=== PATIENT | male | born 1950 | race Caucasian/White ===

== ENCOUNTER 2017-09-29 04:44 | Inpatient (IN) | payer OTHER, MEDICARE ==
[~2017-09-29] VITALS: Ht 175.3 cm; Wt 60.8 kg
[2017-09-29] MEDS ORDERED: METOCLOPRAMIDE HCL 10 MG/2 ML VIAL IV ONE (05:00)
[2017-09-29] MEDS ORDERED: IV NORMAL SALINE 1000 ML BAG IV ONE (05:00)
[2017-09-29] MEDS ORDERED: FAMOTIDINE. 20 MG/2 ML VIAL IV ONE ×2 (05:00→05:25)
--- NOTE | 2017-09-29 05:21 | NUR ---
EKG DONE,MEDS ADMIN,1L 0.9 NS INFUSING. PT POSITIONED FOR COMFORT.
[2017-09-29] MEDS ORDERED: METOCLOPRAMIDE HCL 10 MG/2 ML VIAL ONE (05:25)
[2017-09-29] MEDS ORDERED: DILTIAZEM HCL 25 MG IV IV ONE ×2 (05:30→05:45)
[2017-09-29] MEDS ORDERED: DILTIAZEM HCL 50 MG IV ONE ×2 (05:44→06:17)
[2017-09-29 05:50] LABS: CARBON DIOXIDE 27 mmol/L (21-32); CHLORIDE 104 mmol/L (98-107); CREATININE 1.6 mg/dL (0.6-1.3); GLUCOSE 114 mg/dL (74-106); POTASSIUM 3.2 mmol/L (3.5-5.1); UREA NITROGEN, BLOOD 30 mg/dL (7-18)
[2017-09-29 05:53] LABS: ETHANOL < 3 MG/DL (0-0)
[2017-09-29] MEDS ORDERED: POTASSIUM CHLORIDE 40 MEQ in IV NS 1000 ML 1,000 ML IV STA (05:55)
[2017-09-29 05:56] LABS: ALANINE AMINOTRANSFERASE 66 U/L (16-63); ALKALINE PHOSPHATASE 110 U/L (50-136); ASPARTATE AMINOTRANSFERASE 53 U/L (15-37); BILIRUBIN,DIRECT 0.2 mg/dL (0.0-0.2); BILIRUBIN,TOTAL 0.7 mg/dL (0.2-1.0); TOTAL PROTEIN, SERUM 8.3 g/dL (6.4-8.2)
[2017-09-29 05:57] LABS: BASOPHILS % (AUTO) 0.3 % (0.0-2.0); EOSINOPHILS # (AUTO) 0.1 K/uL (0.0-0.7); EOSINOPHILS % (AUTO) 1.3 % (0.0-7.0); HEMATOCRIT 47.8 % (40-50); HEMOGLOBIN 15.7 G/DL (14.0-18.0); LYMPHOCYTES # (AUTO) 1.2 K/UL (0.8-4.8); LYMPHOCYTES % (AUTO) 14.8 % (20.5-51.5); MEAN CORPUSCULAR HEMOGLOBIN 29.6 UUG (27.0-31.0); MEAN CORPUSCULAR HGB CONC 33 g/dL (32.0-37.0); MEAN CORPUSCULAR VOLUME 90.2 FL (82.0-92.0); MONOCYTES # (AUTO) 0.8 K/UL (0.1-1.30); MONOCYTES % (AUTO) 9.5 % (0.0-11.0); NEUTROPHILS # (AUTO) 5.8 K/UL (1.8-8.9); NEUTROPHILS % (AUTO) 74.1 % (38.5-71.5); PLATELET COUNT (AUTO) 258 K/UL (150-450); WHITE BLOOD COUNT (AUTO) 7.9 K/UL (4.0-11.2)
[2017-09-29] MEDS ORDERED: POTASSIUM CHLORIDE 20 MEQ TAB.PRT.SR PO ONE (06:00)
[2017-09-29] MEDS ORDERED: DILTIAZEM HCL IV 125 MG in IV DEXTROSE 5% 100 ML IV PRN (06:00)
[2017-09-29 06:04] LABS: ACETAMINOPHEN < 2.0 ug/mL (10-30)
[2017-09-29] MEDS ORDERED: POTASSIUM CHLORIDE 20 MEQ TAB.PRT.SR ONE (06:17)
[2017-09-29] MEDS ORDERED: LORAZEPAM 2 MG/1 ML VIAL IV ONE (06:45)
--- NOTE | 2017-09-29 06:52 | NUR ---
ALL MD ORDERS COMPLETED, 10MG/HR DILTIAZEM DRIP INFUSING,PT CONVERTED AT THIS TIME, RATE AT 81. BELONGINGS LIST DONE, AWAITING FOR TECHNOLOGY ARCHITECT MD TO CALL BACK. PT RESTING.
[2017-09-29 06:55] LABS: *AMPHETAMINE, URINE POSITIVE (NEGATIVE); *BARBITURATE, URINE NEGATIVE (NEGATIVE); *CANNABINOID, URINE NEGATIVE (NEGATIVE); *COCCAINE, URINE NEGATIVE (NEGATIVE); *OPIATE, URINE POSITIVE (NEGATIVE); *PHENCYCLIDINE SCREEN,URINE NEGATIVE (NEGATIVE)
[2017-09-29] MEDS ORDERED: LORAZEPAM 2 MG/1 ML VIAL ONE (06:56)
--- NOTE | 2017-09-29 07:10 | NUR ---
SBAR REPORT TO AM SHIFT, PT SLEEPING ,MONITOR SHOWS.
--- NOTE | 2017-09-29 07:13 | NUR ---
MONITOR SHOWS NSR AT 79 BPM
--- NOTE | 2017-09-29 07:30 | NUR ---
Patient is resting comfortably in bed with eyes closed, NAD noted. Continue w/ Cardizem drip, remaines NSR.
--- NOTE | 2017-09-29 08:15 | NUR ---
Cardizem drip stopped per ER MD order. Pt remaines SR at the rate of 80's bpm.
--- NOTE | 2017-09-29 08:15 | NUR ---
Pt accepted by DR Maloney, unable to tx to Tele floor due to blood availibity, nursing warehouse supervisor 3rd shift aware.
--- NOTE | 2017-09-29 09:10 | NUR ---
BREAKFAST PROVIDED BUT PT REMAINES DROWSY ON/OFF. VSS.
--- NOTE | 2017-09-29 12:05 | NUR ---
Patient is resting comfortably in bed with eyes closed...
[2017-09-29 14:55] VITALS: BP 121/64
--- NOTE | 2017-09-29 15:30 | NUR ---
ADM TO UNIT PER MD ORDER. A/OX4 BUT SLEEPY AND DROWSY YET EASILY AROUSABLE; TELE SR WITH INVERTED T-WAVE AND PRIMARY MD AWARE. STARTED ON PO INTAKE AND WAS WELL [place]. WILL CONT TO MONITOR AT THIS TIME.
--- NOTE | 2017-09-29 18:56 | NUR ---
STATUS STABLE AT THIS TIME. DINNER WELL CATALINA AND NO S/S OF ANY GI DISTRESS NOTED.
[2017-09-29] MEDS ORDERED: ACETAMINOPHEN 325 MG TABLET PO PRN (19:15)
[2017-09-29] MEDS ORDERED: ONDANSETRON 4 MG/2 ML VIAL IV PRN (19:15)
[2017-09-29 20:00] VITALS: BP 131/55
[2017-09-29] MEDS ORDERED: IV 0.9% SODIUM CHLORID+ 20 KCL 1,000 ML ONE (22:41)
[2017-09-29] MEDS: POTASSIUM CHLORIDE 20 MEQ in IV NS 1000 ML 1,000 ML IV PRN (22:46)
[2017-09-30 01:02] VITALS: BP 125/63
[2017-09-30 04:00] VITALS: BP 130/64
[2017-09-30 07:09] LABS: BASOPHILS # (AUTO) 0.1 K/uL (0.0-8.0); BASOPHILS % (AUTO) 1.7 % (0.0-2.0); EOSINOPHILS # (AUTO) 0.1 K/uL (0.0-0.7); LYMPHOCYTES # (AUTO) 0.9 K/UL (0.8-4.8); LYMPHOCYTES % (AUTO) 19.2 % (20.5-51.5); MEAN CORPUSCULAR HEMOGLOBIN 30.2 UUG (27.0-31.0); MEAN CORPUSCULAR HGB CONC 33 g/dL (32.0-37.0); MEAN CORPUSCULAR VOLUME 91.6 FL (82.0-92.0); MONOCYTES # (AUTO) 0.6 K/UL (0.1-1.30); NEUTROPHILS % (AUTO) 63.1 % (38.5-71.5); PLATELET COUNT (AUTO) 202 K/UL (150-450)
[2017-09-30 07:33] LABS: BILIRUBIN,TOTAL 0.4 mg/dL (0.2-1.0); CREATININE 1.3 mg/dL (0.6-1.3); MAGNESIUM 1.8 mg/dL (1.8-2.4); PHOSPHOROUS 2.9 mg/dL (2.5-4.9); POTASSIUM 4.2 mmol/L (3.5-5.1); TOTAL PROTEIN, SERUM 6.2 g/dL (6.4-8.2)
[2017-09-30 07:37] LABS: WHITE BLOOD COUNT (AUTO) 4.7 K/UL (4.0-11.2)
[2017-09-30 07:38] LABS: HEMATOCRIT 39.4 % (40-50)
--- NOTE | 2017-09-30 07:58 | NUR ---
Awake, alert, oriented x 4. IVF infusing. Tele SR 60. He likes to eat, waiting for breakfast
[2017-09-30] MEDS: PANTOPRAZOLE SODIUM 40 MG TABLET.DR PO SCH (08:26)
[2017-09-30 09:31] LABS: THYROID STIMULATING HORMONE 0.419 mIU/mL (0.358-3.740)
[2017-09-30 11:35] VITALS: BP 127/52
[2017-09-30] MEDS: POTASSIUM CHLORIDE 20 MEQ in IV NS 1000 ML 1,000 ML IV PRN (13:22)
--- NOTE | 2017-09-30 14:00 | NUR ---
Asking about going out to smoke. Offered Nicotine patch but refused at this time. Redirected and offered snacks.
[2017-09-30 15:28] VITALS: BP 151/70
--- NOTE | 2017-09-30 18:48 | NUR ---
Seen by clinical scientist. DC tele.
[2017-09-30 20:18] VITALS: BP 109/43
[2017-10-01] MEDS: POTASSIUM CHLORIDE 20 MEQ in IV NS 1000 ML 1,000 ML IV PRN (02:49)
[2017-10-01 04:51] VITALS: BP 147/79
--- NOTE | 2017-10-01 06:05 | NUR ---
IN BED, NO C/O PAIN. SLEPT MOST SHIFT. IVF STILL INFUSING. SAFETY MEASURES RENDERED.
[2017-10-01] MEDS: PANTOPRAZOLE SODIUM 40 MG TABLET.DR PO SCH (06:13)
[2017-10-01 08:25] VITALS: BP 147/86
[2017-10-01] MEDS: ASPIRIN EC 81 MG TABLET.DR PO SCH (08:41)
[2017-10-01] MEDS: DILTIAZEM HCL CD 120 MG CAP.SR.24H PO SCH (08:42)
[2017-10-01 11:04] VITALS: BP 127/66
[2017-10-01 15:24] VITALS: BP 130/64
[2017-10-01] MEDS: HYDROCODONE/APAP 5-325MG TABLET PO PRN (20:02)
--- NOTE | 2017-10-01 20:30 | NUR ---
Received patient in room, no SOB denies chest discomfort. Complaining of headache & abdominal pain w/ 05/20 pain level. BP 136/64 HR 64. Blackwell 1 tab po adm. Ice pack applied on head. Will continue to monitor.
[2017-10-01 20:33] VITALS: BP 136/64
[2017-10-01] MEDS: NICOTINE 21 MG/24HR PATCH TD SCH (22:44)
[2017-10-01] MEDS ORDERED: NICOTINE 21 MG/24HR PATCH TD SCH (22:45)
[2017-10-01] MEDS: ZOLPIDEM 5 MG TABLET PO PRN (22:49)
[2017-10-01] MEDS ORDERED: NICOTINE 21 MG/24HR PATCH TD ONE (22:55)
[2017-10-02] MEDS: HYDROCODONE/APAP 5-325MG TABLET PO PRN ×3 (04:08→21:28)
[2017-10-02 04:12] VITALS: BP 144/58
[2017-10-02] MEDS: PANTOPRAZOLE SODIUM 40 MG TABLET.DR PO SCH (05:39)
--- NOTE | 2017-10-02 06:48 | NUR ---
Patient is now on Nicotine patch. Rested well today, kept comfortable. No acute distress.
--- NOTE | 2017-10-02 08:12 | NUR ---
Patient says he wants pain medication for left hip. By the time specification writer brought pain medication, he said his hip was feeling better and he did not need it.
[2017-10-02] MEDS: ASPIRIN EC 81 MG TABLET.DR PO SCH (09:18)
[2017-10-02] MEDS: NICOTINE 21 MG/24HR PATCH TD SCH (09:19)
[2017-10-02] MEDS: DILTIAZEM HCL CD 120 MG CAP.SR.24H PO SCH (09:19)
[2017-10-02 11:43] VITALS: BP 133/64
[2017-10-02 15:50] VITALS: BP 132/64
--- NOTE | 2017-10-02 19:32 | NUR ---
Handoff to night nurse.
--- NOTE | 2017-10-02 20:00 | NUR ---
Patient asleep, no signs of distress. Kept comfortable. Vital signs WNL.
[2017-10-02 20:10] VITALS: BP 136/64
[2017-10-02] MEDS: ZOLPIDEM 5 MG TABLET PO PRN (21:28)
[2017-10-03 04:15] VITALS: BP 150/73
[2017-10-03] MEDS: PANTOPRAZOLE SODIUM 40 MG TABLET.DR PO SCH (05:57)
--- NOTE | 2017-10-03 06:26 | NUR ---
Assisted w/ needs, no acute resp distress.
[2017-10-03 07:00] LABS: BASOPHILS # (AUTO) 0.2 K/uL (0.0-8.0); BASOPHILS % (AUTO) 3.9 % (0.0-2.0); EOSINOPHILS # (AUTO) 0.2 K/uL (0.0-0.7); EOSINOPHILS % (AUTO) 4.1 % (0.0-7.0); HEMATOCRIT 43.2 % (40-50); LYMPHOCYTES # (AUTO) 1.3 K/UL (0.8-4.8); LYMPHOCYTES % (AUTO) 23.2 % (20.5-51.5); MEAN CORPUSCULAR HEMOGLOBIN 29.6 UUG (27.0-31.0); MEAN CORPUSCULAR HGB CONC 32 g/dL (32.0-37.0); MEAN CORPUSCULAR VOLUME 91.3 FL (82.0-92.0); MONOCYTES # (AUTO) 0.7 K/UL (0.1-1.30); MONOCYTES % (AUTO) 12.1 % (0.0-11.0); NEUTROPHILS # (AUTO) 3.2 K/UL (1.8-8.9); NEUTROPHILS % (AUTO) 56.7 % (38.5-71.5); PLATELET COUNT (AUTO) 261 K/UL (150-450); RED BLOOD CELL COUNT(AUTO) 4.72 MIL/UL (4.7-6.1); WHITE BLOOD COUNT (AUTO) 5.6 K/UL (4.0-11.2)
[2017-10-03 07:48] LABS: BILIRUBIN,TOTAL 0.4 mg/dL (0.2-1.0); PHOSPHOROUS 2.6 mg/dL (2.5-4.9); POTASSIUM 4.3 mmol/L (3.5-5.1); TOTAL PROTEIN, SERUM 6.9 g/dL (6.4-8.2)
[2017-10-03] MEDS: NICOTINE 21 MG/24HR PATCH TD SCH (08:31)
[2017-10-03] MEDS: ASPIRIN EC 81 MG TABLET.DR PO SCH (08:32)
[2017-10-03] MEDS: DILTIAZEM HCL CD 120 MG CAP.SR.24H PO SCH (08:32)
[2017-10-03] MEDS: HYDROCODONE/APAP 5-325MG TABLET PO PRN (08:44)
--- NOTE | 2017-10-03 08:45 | NUR ---
PATIENT REQUESTING FOR PAIN MEDICATION STATED THAT HIS BACK IS HURTING HIM SO MEDICATED ORDERED AND WILL OBSERVE
[2017-10-03] MEDS ORDERED: FLUTICASONE/VILANTEROL 1 EACH BLST.W.DEV INH SCH (09:00)
--- NOTE | 2017-10-03 11:47 | NUR ---
PATIENT SEEN STANDING IN THE HALLWAY WITH HIS RYAN PANTS ON HOLDING HIS SHIRT STATED WANTS TO GO TO SMOKE REMINDED HIM THAT HE HAS A NICOTINE PATCH ON AND IS NOT SUPPOSED TO SMOKE AND HE STATED OKAY WILL CONTINUE TO OBSERVE AND REDIRECT PATIENT
[2017-10-03 12:02] VITALS: BP 127/60
--- NOTE | 2017-10-03 13:16 | NUR ---
DR DIAS HERE AND STATED THAT THE PLAN IS TO DISCHARGE PATIENT HOME TODAY PATIENT AWARE AND STATED THAT HE WAS READY HE INFORMED ME THAT HE IS HOMELESS AND HAS BEEN FOR YEARS STATED DOES NOT WANT TO GET A PLACE OF HIS OWN DOES NOT WANT TO GO TO THE [facility] JUST LIKES TO BE OUT THERE DOING HIS THING AWAITING FOR ORDERS
[2017-10-03] MEDS ORDERED: HYDR-3326 PO (13:51)
[2017-10-03] MEDS ORDERED: ASPI81TA31 PO (13:51)
--- NOTE | 2017-10-03 15:00 | NUR ---
DR DIAS HERE AND SEEN PATIENT AND WROTE PRESCRIPTIONS FOR DISCHARGE MEDICATIONS PATIENT WAS OFFERED THE [facility] AGAIN AND HE STATED NO WANTS TO GO BACK TO SAME WAY OF LIFE
--- NOTE | 2017-10-03 15:40 | NUR ---
PATIENT DISCHARGED ESCORTED TO THE FRONT OF THE HOSPITAL STATED THAT HE WILL TAKE THE BUS [place] AND WILL DROP AT HIS FRIENDS HOUSE AND THEN WILL GO TO THE PARK WHERE HE RESIDES DISCHARGE INSTRUCTIONS AND PRESCRIPTIONS GIVEN TO THE PATIENT AND HE WAS INSTRUCTED TO CALL HIS PRIMARY DOCTOR FOR A FOLLOW UP APPOINTMENT WITHIN THE NEXT ONE TO TWO WEEKS AND HE EXPRESSED UNDERSTANDING PATIENT ASKED ME WHERE HIS FLASH LIGHT WAS BUT ON THE INVENTORY THE FLASH LIGHT WAS NOT RECORDED I WENT TO THE SECURITY AND THE ED BUT WAS UNABLE TO LOCATE THE FLASH LIGHT SO PATIENT STATED THAT THE PARAMEDICS TOOK THE FLASH LIGHT FROM HIM WHEN THERE WERE GIVING HIM A RIDE HERE AND THAT HE WILL GO TO THE FIRE STATION CLOSE TO WHERE HE WAS PICKED UP TO SEE IF THEY HAVE A RECORD OF THE FLASH LIGHT
[2017-10-03 16:04] VITALS: BP 130/63
== END 2017-10-03 16:06 | disposition home or self-care (01) | DRG 201 ==
LOC: ER 04:45 → TELE 14:05 → MED 09-30 19:00
PROVIDERS: ADMIT Internal Medicine; ATTEND Internal Medicine
DX: I48.0 Paroxysmal atrial fibrillation (principal); N17.0 Acute kidney failure with tubular necrosis; E43 Unspecified severe protein-calorie malnutrition; G92 Toxic encephalopathy; I78.0 Hereditary hemorrhagic telangiectasia; J44.9 Chronic obstructive pulmonary disease, unspecified; I11.9 Hypertensive heart disease without heart failure; E86.0 Dehydration; F17.210 Nicotine dependence, cigarettes, uncomplicated; Z59.0 Homelessness; Z87.11 Personal history of peptic ulcer disease; F10.11 Alcohol abuse, in remission; Y90.0 Blood alcohol level of less than 20 mg/100 ml; Z68.1 Body mass index [BMI] 19.9 or less, adult; K52.9 Noninfective gastroenteritis and colitis, unspecified; F15.10 Other stimulant abuse, uncomplicated; K76.9 Liver disease, unspecified; E87.6 Hypokalemia; T40.2X1A Poisoning by other opioids, accidental (unintentional), initial encounter; T50.901A Poisoning by unspecified drugs, medicaments and biological substances, accidental (unintentional), initial encounter; Y92.89 Other specified places as the place of occurrence of the external cause
CPT/HCPCS: 36415; 70030-TC; 71010; 80307; 83690; 83735; 84100; 84443; 85025; 85730; 93005; 93307; A4663; G0480; G0480-TC; J2060; J2765; J3480; J3490; J7030

== ENCOUNTER 2018-01-05 20:54 | Emergency (ER) | payer MEDICARE, OTHER ==
[~2018-01-05 20:54] MED LIST: ASPI81TA31 PO; HYDR-3326 PO
--- NOTE | 2018-01-05 22:08 | NUR ---
CALLED FOR PT NO ANSWER .
--- NOTE | 2018-01-05 22:30 | NUR ---
CALLED FOR PT NO ANSWER LWBT
--- NOTE | 2018-01-05 23:10 | NUR ---
CALLED FOR PT NO ANSWER
== END 2018-01-05 23:12 | disposition left against medical advice (07) ==
LOC: ER 20:54
DX: Z53.21 Procedure and treatment not carried out due to patient leaving prior to being seen by health care provider (principal)

== ENCOUNTER 2019-01-24 19:43 | Inpatient (IN) | payer MEDICARE, OTHER ==
[~2019-01-24] VITALS: Ht 172.7 cm; Wt 64.4 kg
--- NOTE | 2019-01-24 20:10 | NUR ---
Patient ambulated with stable gait. Patient AAOx4. Patient speaks in complete sentences, speaks clearly. Patient came in with c/o L. EAR/HEAD pain. Respirations even and unlabored, no sob, no cough. No cardiovascular distress noted, all pulses palpable. No GI/ distress. Patient in bed at lowest position, side rails upx2, call light within reach. Fall precautions implemented per protocol.
[2019-01-24] MEDS ORDERED: CEFTRIAXONE 1 G in IV DEXTROSE 5% 50 ML IV ONE (20:15)
[2019-01-24] MEDS ORDERED: VANCOMYCIN IV 1,000 MG in IV DEXTROSE 5% 250 ML IV ONE (20:15)
[2019-01-24] MEDS ORDERED: CEFTRIAXONE 1 G VIAL ONE (20:16)
--- NOTE | 2019-01-24 20:35 | NUR ---
Pt went down to radiology dept for CT Scan.
[2019-01-24 20:41] LABS: BASOPHILS % (AUTO) 0.3 % (0.0-2.0); HEMATOCRIT 43.7 % (36.7-47.1); HEMOGLOBIN 14.5 g/dL (12.5-16.3); LYMPHOCYTES # (AUTO) 0.4 K/uL (20.0-40.0); LYMPHOCYTES % (AUTO) 3.3 % (20.5-51.5); MEAN CORPUSCULAR HEMOGLOBIN 29.7 uug (23.8-33.4); MEAN CORPUSCULAR HGB CONC 33 g/dL (32.5-36.3); MEAN CORPUSCULAR VOLUME 89.8 fL (73.0-96.2); MONOCYTES # (AUTO) 1.1 K/uL (2.0-10.0); MONOCYTES % (AUTO) 8.2 % (0.0-11.0); NEUTROPHILS # (AUTO) 11.8 K/uL (1.8-8.9); NEUTROPHILS % (AUTO) 88.2 % (38.5-71.5); PLATELET COUNT (AUTO) 238 K/uL (152-348); RED BLOOD CELL COUNT(AUTO) 4.86 MIL/uL (4.06-5.63); WHITE BLOOD COUNT (AUTO) 13.4 K/uL (3.6-10.2)
[2019-01-24 20:51] LABS: CREATININE 1.7 mg/dL (0.6-1.3); POTASSIUM 4.4 mmol/L (3.5-5.1)
[2019-01-24 20:57] LABS: BILIRUBIN,DIRECT 0.3 mg/dL (0.0-0.2); BILIRUBIN,TOTAL 0.9 mg/dL (0.2-1.0)
[2019-01-24] MEDS ORDERED: VANCOMYCIN IV 200 ML ONE (21:33)
[2019-01-24] MEDS ORDERED: IV NORMAL SALINE 1000 ML BAG IV ONE (21:45)
--- NOTE | 2019-01-24 21:46 | NUR ---
Panel call request through [employer] initiated. Awaiting phone call back.
--- NOTE | 2019-01-24 23:30 | NUR ---
Patient transfered to [facility] condition.
--- NOTE | 2019-01-24 23:35 | NUR ---
Received patient from emergency department via [facility] accompanied by PATRIC Deleon in stable condition. Patient is alert, oriented and ambulatory. Patient walked from [facility] to hospital bed. Noted he is in room air, tolerated. He has an IV access on the right forearm, 20g to saline lock, patent and intact. Patient settled in room, changed to hospital gown and helped patient clean himself. Oriented patient to unit and use of call light. Patient has no complaints at the moment. Bed in low position, locked, side rails up x 2, call light within reach. Noise and lights subdued. Will continue to monitor.
[2019-01-25] MEDS ORDERED: LORAZEPAM 2 MG/1 ML VIAL IV PRN
[2019-01-25] MEDS ORDERED: ACETAMINOPHEN 325 MG TABLET PO PRN
[2019-01-25] MEDS ORDERED: PIPERACILLIN/TAZOBACTAM/D5W 0 ML IV ONE (00:42)
[2019-01-25] MEDS ORDERED: PIPERACILLIN/TAZOBACTAM/D5W 50 ML ONE (01:06)
[2019-01-25 02:21] VITALS: BP 150/62
--- NOTE | 2019-01-25 04:40 | NUR ---
Patient complaining of shortness of breath. Upon assessment, patient has clear breath sounds throughout the lungs and oxygen saturation at 96-97%. Noted patient has nonproductive cough. Placed patient on semi-fowlers position and started oxygen support at 2lpm via nasal cannula. Will reassess.
[2019-01-25 05:58] LABS: BASOPHILS # (AUTO) 0.1 K/uL (0.0-8.0); BASOPHILS % (AUTO) 0.5 % (0.0-2.0); EOSINOPHILS # (AUTO) 0.1 K/uL (0.0-0.7); EOSINOPHILS % (AUTO) 0.6 % (0.0-7.0); HEMATOCRIT 38.7 % (36.7-47.1); HEMOGLOBIN 12.9 g/dL (12.5-16.3); LYMPHOCYTES # (AUTO) 1.1 K/uL (20.0-40.0); LYMPHOCYTES % (AUTO) 11.7 % (20.5-51.5); MEAN CORPUSCULAR HEMOGLOBIN 30.1 uug (23.8-33.4); MEAN CORPUSCULAR HGB CONC 33 g/dL (32.5-36.3); MEAN CORPUSCULAR VOLUME 90.3 fL (73.0-96.2); MONOCYTES # (AUTO) 1.2 K/uL (2.0-10.0); MONOCYTES % (AUTO) 12.2 % (0.0-11.0); NEUTROPHILS # (AUTO) 7.3 K/uL (1.8-8.9); PLATELET COUNT (AUTO) 193 K/uL (152-348); RED BLOOD CELL COUNT(AUTO) 4.28 MIL/uL (4.06-5.63); WHITE BLOOD COUNT (AUTO) 9.7 K/uL (3.6-10.2)
[2019-01-25] MEDS ORDERED: PIPERACILLIN/TAZOBACTAM/D5W 2.25 G in PREMIXED 1 EACH IV SCH (06:00)
[2019-01-25 06:02] VITALS: BP 113/55
[2019-01-25] MEDS: PANTOPRAZOLE SODIUM 40 MG TABLET.DR PO SCH (06:04)
[2019-01-25 06:16] LABS: BILIRUBIN,TOTAL 0.9 mg/dL (0.2-1.0); CREATININE 1.3 mg/dL (0.6-1.3); MAGNESIUM 1.8 mg/dL (1.8-2.4); PHOSPHOROUS 3.3 mg/dL (2.5-4.9); POTASSIUM 4.6 mmol/L (3.5-5.1)
--- NOTE | 2019-01-25 06:34 | NUR ---
Patient slept intermittently throughout the night. Patient breathing better and verbalized that he feels better after oxygen support started, oxygen saturation 96-98% Noted still with swelling on left side of the face and left ear, noted drainage from left ear. With pain on left ear but patient declined any pain medications. Attended all needs. Ensured safety and comfort.
--- NOTE | 2019-01-25 07:30 | NUR ---
RECEIVED PATIENT ASLEEP IN BED BUT IS EASILY AROUSABLE ON ROUNDS HE IS ALERT AND ORIENTED DENIES PAIN OR DISCOMFORTS AT THIS TIME.ON O2 FOR C/O SHORTNESS OF BREATH NOTED CALL LIGHTS AND PERSONAL BELONGINGS ARE WITHIN EASY REACH MADE COMFORTABLE AND WILL CONTINUE TO OBSERVE PATIENT.
--- NOTE | 2019-01-25 10:08 | NUR ---
Clinical Pharmacy Note: Vancomycin Dosing per Pharmacy Subjective: Vancomycin IV to start on this 68 yo male patient for SI "Acute infection of left pinna" Objective: BUN 23/Scr 1.3 (decreasing) WBC 9.7 Temperature 97.7 Vanco random: 9.5 (on 01/24 at 2200) ht 172.7 cm wt 64.4 kg Assessment/Plan: Patient received vanco 1gm IVPB x1 in ED on 01/24 at 2200. Will start vancomycin 1000mg IVPB Q20hr for a predicted vancomycin steady state trough level of 17 mcg/ml. 1st dose today at 1100. Will draw a vancomycin trough level prior to the 4th dose of vancomycin (not ordered yet). Will monitor renal function and adjust vancomycin dose, if needed, should renal function change significantly. Will follow daily.
[2019-01-25] MEDS: VANCOMYCIN IV 1 G in PREMIXED 0 EACH IV SCH (10:21)
[2019-01-25 11:06] VITALS: BP 136/55
--- NOTE | 2019-01-25 13:14 | NUR ---
PATIENTS IV SITE INFILTERATED AND REMOVED ASSISTED WITH SHOWERING AND ATTEMPTED TO REINSERT SOON I APPLIED THE TOURNIQUET PATIENT STATED NOT NOW NOT READY ASKED HIM WHEN HE WANTED ME TO COME BACK TO REINSERT STATED DOES NOT KNOW SO ANABEL MOSS NOTIFIED HIS NEXT DOSE OF ZOSYN IS DUE IN A FEW MINUTES.
--- NOTE | 2019-01-25 14:19 | NUR ---
ANABEL MOSS HERE IN THE ROOM SEEN PATIENT AND CONVINCED HIM TO HAVE A MID LINE PLACED AND PATIENT AGREED HARNESS CUTTER AWARE MID LINE RN HERE AND IS PLACING THE LINE NOW.
[2019-01-25] MEDS: PIPERACILLIN/TAZOBACTAM/D5W 3.375 G in PREMIXED 1 EACH IV SCH ×2 (14:26→21:04)
[2019-01-25 15:07] VITALS: BP 103/54
--- NOTE | 2019-01-25 19:45 | NUR ---
PATIENT AWAKE ALERT ORIENTED, NO SOB NO CHEST PAIN NOTED. LEFT SIDE FACE/EAR STILL SWOLLEN. PATIENT CONTINUE ON ABX FOR L EAR INFECTION. PATIENT HAS NO COMPLAIN OF PAIN AT THIS TIME. PATIENT HAS SLIGHT ELEVATED TEMP 100. WILL GIVE TYLENOL AND COOLING MEASURE. CONT TO MONITOR.
[2019-01-25 21:44] VITALS: BP 97/70
[2019-01-25] MEDS ORDERED: PIPERACILLIN/TAZOBACTAM/D5W 3.375 G in PREMIXED 1 EACH IV SCH (22:00)
[2019-01-26] MEDS: PIPERACILLIN/TAZOBACTAM/D5W 3.375 G in PREMIXED 1 EACH IV SCH ×3 (05:11→21:04)
[2019-01-26 05:18] VITALS: BP 143/53
[2019-01-26] MEDS: HYDROCODONE/APAP 5-325MG TABLET PO PRN ×2 (05:23→19:39)
[2019-01-26] MEDS: VANCOMYCIN IV 1 G in PREMIXED 0 EACH IV SCH (06:11)
[2019-01-26] MEDS: PANTOPRAZOLE SODIUM 40 MG TABLET.DR PO SCH (06:12)
--- NOTE | 2019-01-26 06:44 | NUR ---
PATIENT AWAKE NO SOB NO CHEST PAIN, L UPPER ARM MIDLINE INTACT PATENT, COMPLAIN OF L EAR PAIN GIVEN MEDICATION WITH SOME HELP. CONTINENT OF BLADDER. CONT TO MONITOR.
--- NOTE | 2019-01-26 07:15 | NUR ---
RECEIVED AWAKE ALERT AND ORIENTED DENIES PAIN OR DISCOMFORTS ATB ORDERED CURRENTLY INFUSING WITH NO ADVERSE OR ALLERGIC REACTIONS AT THIS TIME MID LINE LEFT UPPER ARM REMAINS INTACT WITH NO S/S OF INFILTERATION ON SITE.MOT IN DISTRESS AT THIS TIME.
[2019-01-26] MEDS: ASPIRIN 81 MG TAB.CHEW PO SCH (08:45)
[2019-01-26 11:09] VITALS: BP 123/66
--- NOTE | 2019-01-26 11:44 | NUR ---
Clinical Pharmacy Note: Vancomycin Dosing per Pharmacy Subjective: Vancomycin IV to start on this 68 yo male patient for SI "Acute infection of left pinna" Objective: BUN 23/Scr 1.3 (01/25-decreasing) WBC 9.7 (01/25) Temperature 98.2 Vanco random: 9.5 (on 01/24 at 2200) ht 172.7 cm wt 64.4 kg Assessment/Plan: Will continue same dose of vancomycin 1000mg IVPB Q20hr for today. 3rd dose tomorrow at 0300. Will draw a vancomycin trough level prior to the 4th dose of vancomycin (not ordered yet). Will monitor renal function and adjust vancomycin dose, if needed, should renal function change significantly. Will follow daily.
--- NOTE | 2019-01-26 13:30 | NUR ---
REMAIN ON ANTBIOTICS ORDERED WITH NO ADVERSE OR ALLERGIC REACTIONS AT THIS TIME.NO C/O PAIN OR DISCOMFORTS AT THIS TIME
--- NOTE | 2019-01-26 15:15 | NUR ---
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
[2019-01-26 15:30] VITALS: BP 132/74
--- NOTE | 2019-01-26 18:07 | NUR ---
REMAIN ON CONTACT ISOLATION AND PRECAUTION ORDERED WITH PPES AND GOOD HAND WASHING NO ADVERSE OR ALLERGIC REACTIONS NOTED FROM ATB ORDERED NOT IN DISTRESS AT THIS TIME
--- NOTE | 2019-01-26 19:45 | NUR ---
RECEIVED PATIENT AWAKE IN ROOM, HOLDING LEFT EAR. BLEEDING NOTED. PATENT DENIES PICKING AT EAR. CLEANED WITH NS AND APPLIED STERILE DRESSING OVER, WHICH PATIENT REFUSES TO KEEP ON. WILL CONTINUE TO CLOSELY MONITOR. MID-LINE NOTED TO LEFT UPPER ARM, INTACT AND PATENT. PATIENT C/O PAIN IN LEFT EAR BUT DENIES NEED FOR ANY PAIN MEDICATION. VSS. NO RESP. DISTRESS NOTED. PATIENT IS ON ISOLATION FOR MRSA NARES. BED ALARM ON. ALL NEEDS ATTENDED. WILL CONTINUE TO MONITOR AND ASSESS.
[2019-01-26 19:54] VITALS: BP 152/61
--- NOTE | 2019-01-26 20:00 | NUR ---
PATIENT AWAKE IN BED. ANABEL-STEPHON CALLED TO NOTIFY HIM OF PATIENTS EAR. NO BLEEDING IS NOTED AT THIS TIME. WILL CONTINUE TO MONITOR AND ASSESS.
[2019-01-26] MEDS: CULTURELLE CAPSULE PO SCH ×2 (20:47→21:00)
[2019-01-26] MEDS: MUPIROCIN 2% OINT 22 GM TUBE NS SCH ×2 (20:47→21:00)
--- NOTE | 2019-01-26 20:50 | NUR ---
PATIENT REFUSED BACTROBAN STATING HE DOES NOT HAVE ANY INFECTION. EDUCATED PATIENT ON THE IMPORTANCE OF MEDIATIONS BUT PATIENT STILL REFUSED. WILL CONTINUE TO MONITOR.
--- NOTE | 2019-01-26 21:05 | NUR ---
PATIENT FEELING ANXIOUS. PATIENT GIVEN ATIVAN 1MG IV PER RN. BED ALARM ON. ALL NEEDS ATTENDED. WILL CONTINUE TO MONITOR AND ASSESS.
[2019-01-27] MEDS: VANCOMYCIN IV 1 G in PREMIXED 0 EACH IV SCH (02:32)
[2019-01-27] MEDS: PIPERACILLIN/TAZOBACTAM/D5W 3.375 G in PREMIXED 1 EACH IV SCH ×2 (05:17→13:07)
[2019-01-27 05:37] VITALS: BP 135/83
[2019-01-27] MEDS: HYDROCODONE/APAP 5-325MG TABLET PO PRN (05:46)
--- NOTE | 2019-01-27 05:46 | NUR ---
PATIENT GIVEN NORCO FOR PAIN.
--- NOTE | 2019-01-27 06:15 | NUR ---
PATIENT RESTING IN BED. SLEPT AT INTERVALS. NO BLEEDING OR DRAINAGE NOTED FROM LEFT EAR. CALL LIGHT IN REACH. ALL NEEDS ATTENDED. WILL CONTINUE TO MONITOR.
[2019-01-27] MEDS: PANTOPRAZOLE SODIUM 40 MG TABLET.DR PO SCH (06:37)
--- NOTE | 2019-01-27 07:15 | NUR ---
RECEIVED PATIENT IN BED ASLEEP PER REPORT PATIENT RECEIVED NORCO EARLIER NOT TOO LONG AGO FOR PAIN NO BLEEDING FROM HIS EAR AT THIS TIME NO S/S OF SHORTNESS OF BREATH CALL LIGHTS AND PERSONAL BELONGINGS ARE PLACED WITHIN EASY REACH MADE COMFORTABLE WILL CONTINUE TO OBSERVE AND PROVIDE SAFE AND THERAPEUTIC ENVIRONMENT AT ALL TIMES.
[2019-01-27] MEDS: CULTURELLE CAPSULE PO SCH (08:33)
[2019-01-27] MEDS: ASPIRIN 81 MG TAB.CHEW PO SCH (08:33)
[2019-01-27] MEDS: MUPIROCIN 2% OINT 22 GM TUBE NS SCH (08:34)
--- NOTE | 2019-01-27 10:49 | NUR ---
Clinical Pharmacy Note: Vancomycin Dosing per Pharmacy Subjective: Vancomycin IV to continue on this 68 yo male patient for SI "Acute infection of left pinna" Objective: BUN 23/Scr 1.3 (01/25-decreasing) WBC 9.7 (01/25) Temperature 98.2 Vanco random: 9.5 (on 01/24 at 2200) ht 172.7 cm wt 64.4 kg Assessment/Plan: Will continue same dose of vancomycin 1000mg IVPB Q20hr for today. 3rd dose given today at 0300. Will draw a vancomycin trough level prior to the 4th dose of vancomycin (ordered for 01/27 at 2230-RN has been informed to hold 2300 dose if vanco trough level is above 20 mcg/ml). Pharmacist shall review the level in am & adjust the dose if needed. Will follow daily.
[2019-01-27] MEDS ORDERED: SULF1TAB48 PO (11:31)
[2019-01-27 11:38] VITALS: BP 138/72
--- NOTE | 2019-01-27 11:53 | NUR ---
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
--- NOTE | 2019-01-27 13:38 | NUR ---
WOUND CARE CONSULT: PT REFUSED SKIN ASSESSMENT. CURRENT DARIELA SCORE IS 21.
--- NOTE | 2019-01-27 14:00 | NUR ---
PER THE WASTE WATER OPERATOR PARAFFIN PLANT SWEATER OPERATOR PATIENT IS REFUSING SENIOR LIVING ALL THE INFORMATION FOR SENIOR LIVING WAS PROVIDED PATIENT DECLINED AND PREFERS TO BE HOMELESS.
--- NOTE | 2019-01-27 14:15 | NUR ---
PATIENT DISCHARGED WITH DISCHARGE INSTRUCTIONS AND PRESCRIPTIONS AND PATIENT STATED THAT HE IS HOMELESS ASKED HIM IF WANTED A BUS [place] STATED DONT WORRY ABOUT IT I WILL TAKE CARE OF MYSELF PATIENT ESCORTED WITH ALL HIS PERSONAL BELONGINGS TO THE FRONT LOBBY IN SATISFACTORY CONDITION NO BLEEDING FROM HIS EAR AT THIS TIME
== END 2019-01-27 14:20 | disposition home or self-care (01) | DRG 115 ==
LOC: ER 19:45 → MEDSURG3 23:09
PROVIDERS: ADMIT Internal Medicine; ATTEND Hospitalist
PROC: 05HY33Z Insertion of Infusion Device into Upper Vein, Percutaneous Approach (ICD-10-PCS; principal; 2019-01-25)
DX: H60.392 Other infective otitis externa, left ear (principal); N17.0 Acute kidney failure with tubular necrosis; I78.0 Hereditary hemorrhagic telangiectasia; E86.0 Dehydration; I13.10 Hypertensive heart and chronic kidney disease without heart failure, with stage 1 through stage 4 chronic kidney disease, or unspecified chronic kidney disease; Z22.322 Carrier or suspected carrier of Methicillin resistant Staphylococcus aureus; Z59.0 Homelessness; Z87.11 Personal history of peptic ulcer disease; Z79.82 Long term (current) use of aspirin; T14.90XS Injury, unspecified, sequela; Y04.2XXS Assault by strike against or bumped into by another person, sequela; F17.210 Nicotine dependence, cigarettes, uncomplicated; N18.9 Chronic kidney disease, unspecified; Z98.890 Other specified postprocedural states; Z96.7 Presence of other bone and tendon implants; F10.21 Alcohol dependence, in remission; F15.10 Other stimulant abuse, uncomplicated; J98.11 Atelectasis; Y90.9 Presence of alcohol in blood, level not specified; S01.312A Laceration without foreign body of left ear, initial encounter; X58.XXXA Exposure to other specified factors, initial encounter; Y92.89 Other specified places as the place of occurrence of the external cause
CPT/HCPCS: 36415; 36569; 70450; 70486; 71045; 72125; 83735; 84100; 85025; 85730; A4663; G0378; J0696; J2060; J2543; J3370; J7030; J7050; J7060

== ENCOUNTER 2019-10-14 21:14 | Emergency (ER) | payer MEDICARE, OTHER ==
[~2019-10-14] VITALS: Ht 175.3 cm; Wt 63.5 kg
[~2019-10-14 21:14] MED LIST changes: +SULF1TAB48 PO
--- NOTE | 2019-10-14 22:28 | NUR ---
Pt provided urine sample, sent to lab.
--- NOTE | 2019-10-14 22:33 | NUR ---
Dr. Flores at bedside for MSE.
[2019-10-14 22:58] LABS: BASOPHILS # (AUTO) 0.1 K/uL (0.0-8.0); BASOPHILS % (AUTO) 1.2 % (0.0-2.0); EOSINOPHILS # (AUTO) 0.1 K/uL (0.0-0.7); EOSINOPHILS % (AUTO) 1.5 % (0.0-7.0); HEMATOCRIT 40.9 % (36.7-47.1); HEMOGLOBIN 13.5 g/dL (12.5-16.3); LYMPHOCYTES # (AUTO) 1.4 K/uL (20.0-40.0); LYMPHOCYTES % (AUTO) 18.5 % (20.5-51.5); MEAN CORPUSCULAR HGB CONC 33 g/dL (32.5-36.3); MEAN CORPUSCULAR VOLUME 93.8 fL (73.0-96.2); MONOCYTES # (AUTO) 0.7 K/uL (2.0-10.0); MONOCYTES % (AUTO) 8.8 % (0.0-11.0); NEUTROPHILS # (AUTO) 5.2 K/uL (1.8-8.9); PLATELET COUNT (AUTO) 198 K/uL (152-348); RED BLOOD CELL COUNT(AUTO) 4.36 MIL/uL (4.06-5.63); WHITE BLOOD COUNT (AUTO) 7.4 K/uL (3.6-10.2)
[2019-10-14 23:06] LABS: *BLOOD, URINE 3+ (NEGATIVE); *CLARITY,URINE CLOUDY (CLEAR); *COLOR,URINE RED (YELLOW); *KETONES,URINE TRACE (NEGATIVE); LEUKOCYTE ESTERASE ,URINE 3+ (NEGATIVE); NITRITE, URINE POSITIVE (NEGATIVE); UGLUCOSE NEGATIVE (NEGATIVE)
[2019-10-14 23:09] LABS: CREATININE 1.2 mg/dL (0.6-1.3); POTASSIUM 4.5 mmol/L (3.5-5.1)
[2019-10-14 23:13] LABS: *BILIRUBIN,URIN 2+ (NEGATIVE)
[2019-10-14 23:19] LABS: BILIRUBIN,DIRECT 0.2 mg/dL (0.0-0.2); BILIRUBIN,TOTAL 0.5 mg/dL (0.2-1.0); TOTAL PROTEIN, SERUM 7.7 g/dL (6.4-8.2)
[2019-10-14 23:26] LABS: RBC,URINE TNTC /HPF (0-3)
[2019-10-14 23:27] LABS: BACTERIA,URINE MANY /HPF (NONE SEEN); SQUAMOUS EPITHELIAL CELL,UR FEW /HPF (NONE SEEN)
[2019-10-14] MEDS ORDERED: MORPHINE SULFATE 2 MG/1 ML DISP.SYRIN ONE (23:44)
[2019-10-14] MEDS ORDERED: MORPHINE SULFATE 2 MG/1 ML DISP.SYRIN IM ONE (23:45)
--- NOTE | 2019-10-14 23:51 | NUR ---
Pt out of ER for CT.
--- NOTE | 2019-10-15 00:10 | NUR ---
Pt back to ER from CT.
[2019-10-15] MEDS ORDERED: NITROFURANTOIN/NITROFURAN MAC 100 MG CAPSULE ONE (01:10)
[2019-10-15] MEDS ORDERED: NITROFURANTOIN/NITROFURAN MAC 100 MG CAPSULE PO ONE (01:15)
--- NOTE | 2019-10-15 01:18 | NUR ---
Patient given written and verbal discharge instructions. Patient verbalizes understanding of instructions. Patient is ambulatory with steady gait. Refuses offer of fdc placement. Patient given list of available shelters in surrounding area. Pt provided food per request, refused all other services at this time. VSS, no acute signs of distress, all belongings taken.
[2019-10-15 01:21] VITALS: BP 118/80
== END 2019-10-15 01:21 | disposition home or self-care (01) ==
LOC: ER 21:16
DX: N39.0 Urinary tract infection, site not specified (principal); I10 Essential (primary) hypertension; F17.210 Nicotine dependence, cigarettes, uncomplicated; Z88.8 Allergy status to other drugs, medicaments and biological substances; Z91.018 Allergy to other foods; Z59.0 Homelessness; Z79.82 Long term (current) use of aspirin; Z79.899 Other long term (current) drug therapy
CPT/HCPCS: 36415; 74176; 80048; 80076; 81000; 81001; 82550; 83605; 85025; 87040 ×2; 87086; 96372; 99284; J2270; A4663

== ENCOUNTER 2021-06-22 03:09 | Emergency (ER) | payer MEDICARE, OTHER ==
[~2021-06-22] VITALS: Ht 172.7 cm; Wt 63.5 kg
--- NOTE | 2021-06-22 03:45 | NUR ---
Patient presents to ER with c/o of shortness of breath x 2 months and states it is "worse with mask" pt also c/o of chest pain, that radiates to the Lt arm x 2 months. No acute distress. Awaiting MD orlando.
[2021-06-22] MEDS ORDERED: IPRATROPIUM BROMIDE 0.5 MG/2.5 ML NEBU NEB ONE (04:00)
[2021-06-22] MEDS ORDERED: ALBUTEROL SULFATE 2.5 MG/3 ML NEBU NEB ONE (04:00)
--- NOTE | 2021-06-22 04:00 | NUR ---
Attempted to insert IV, unable to obtain IV d/t pt's skin being tough. Metal Leaf Layer aware and was going to draw blood. Pt refused to be stuck again for blood draw. Dr. Rahman made aware.
[2021-06-22] MEDS ORDERED: IPRATROPIUM BROMIDE 0.5 MG/2.5 ML NEBU ONE (04:13)
[2021-06-22] MEDS ORDERED: ALBUTEROL SULFATE 2.5 MG/ 0.5 ML NEBU ONE (04:13)
--- NOTE | 2021-06-22 04:20 | NUR ---
RT stated that pt reported cp to her. Dr. Rahman made aware. Spoke with patient that labs need to be drawn to find out what his troponin is. Pt refused lab draws again stated "I don't want to go through that again, I am just here for my breathing." Dr. Rahman made aware.
[2021-06-22] MEDS ORDERED: PRED20TA PO (05:16)
[2021-06-22] MEDS ORDERED: ALBU8.5H8 INH (05:16)
--- NOTE | 2021-06-22 05:20 | NUR ---
Per Dr. Rahman, pt stable for discharge. DC instructions and rx given and reviewed with patient. Verbalized understanding. Left ER instable condition, Pt noted to have weather appropriate clothing and denied need for further assistance or transportation.
[2021-06-27] MEDS ORDERED: NICO-671 TD (14:05)
[2021-06-27] MEDS ORDERED: ALBU2.5V7 NEB (14:05)
[2021-06-27] MEDS ORDERED: ACET325T53 PO (14:05)
[2021-06-27] MEDS ORDERED: FURO-152 PO (19:59)
== END 2021-06-22 05:31 | disposition home or self-care (01) ==
LOC: ER 03:13
DX: J44.1 Chronic obstructive pulmonary disease with (acute) exacerbation (principal); R94.31 Abnormal electrocardiogram [ECG] [EKG]; F17.210 Nicotine dependence, cigarettes, uncomplicated; I10 Essential (primary) hypertension; Z59.0 Homelessness; Z88.6 Allergy status to analgesic agent; Z88.8 Allergy status to other drugs, medicaments and biological substances; Z91.018 Allergy to other foods; Z87.11 Personal history of peptic ulcer disease
CPT/HCPCS: 71045; 93005; A4663; J3590

== ENCOUNTER 2021-06-24 16:05 | Inpatient (IN) | payer OTHER, MEDICARE ==
[~2021-06-24] VITALS: Ht 172.7 cm; Wt 62.1 kg
[~2021-06-24 16:05] MED LIST changes: +ALBU8.5H8 INH; -ASPI81TA31 PO; -HYDR-3326 PO; +PRED20TA PO; -SULF1TAB48 PO
[2021-06-24] MEDS ORDERED: methylPREDNISolone SOD SUCC 125 MG/2 ML VIAL IV ONE (16:45)
[2021-06-24] MEDS ORDERED: ALBUTEROL SULFATE 2.5 MG/3 ML NEBU NEB ONE (16:45)
[2021-06-24] MEDS ORDERED: IPRATROPIUM BROMIDE 0.5 MG/2.5 ML NEBU NEB ONE (16:45)
[2021-06-24] MEDS ORDERED: IPRATROPIUM BROMIDE 0.5 MG/2.5 ML NEBU ONE (16:52)
[2021-06-24] MEDS ORDERED: ALBUTEROL SULFATE 2.5 MG/ 0.5 ML NEBU ONE (16:53)
[2021-06-24] MEDS ORDERED: methylPREDNISolone SOD SUCC 125 MG/2 ML VIAL ONE (16:58)
[2021-06-24 17:55] LABS: HEMATOCRIT 40.5 % (36.7-47.1); MEAN CORPUSCULAR HEMOGLOBIN 31.4 uug (23.8-33.4); PLATELET COUNT (AUTO) 163 K/uL (152-348)
[2021-06-24 18:03] LABS: CREATININE 1.2 mg/dL (0.6-1.3); POTASSIUM 4.5 mmol/L (3.5-5.1)
[2021-06-24 18:06] LABS: MAGNESIUM 1.9 mg/dL (1.8-2.4); PHOSPHOROUS 3.8 mg/dL (2.5-4.9)
--- NOTE | 2021-06-24 18:06 | NUR ---
EKG was done earlier per charge account identification clerk Andrei
--- NOTE | 2021-06-24 18:06 | NUR ---
1730pm :Staffing Branch Manager assumes care, 1st contact with patient, AOx4, tachypneac, speaks in full sentences, still for IV line insertion, COVID swab test & blood draw@this time 1804: Patient is eating dinner with good appetite.
[2021-06-24 18:16] LABS: BILIRUBIN,DIRECT 0.2 mg/dL (0.0-0.2); BILIRUBIN,TOTAL 0.5 mg/dL (0.2-1.0); TOTAL PROTEIN, SERUM 7.4 g/dL (6.4-8.2)
[2021-06-24] MEDS ORDERED: ASPIRIN 325 MG TABLET PO ONE (18:45)
[2021-06-24] MEDS ORDERED: FUROSEMIDE 40 MG/4 ML VIAL IV ONE (18:45)
[2021-06-24] MEDS ORDERED: ASPIRIN 325 MG TABLET ONE (19:01)
[2021-06-24] MEDS ORDERED: FUROSEMIDE 40 MG/4 ML VIAL ONE (19:01)
--- NOTE | 2021-06-24 19:04 | NUR ---
Patient is now waiting for an available telemetry nurse and bed. Dr Bautista accepted patient. Hands off report given to 7pm nurse Eli. Urinal@bedside for urine output, s/p IV Lasix given
[2021-06-24] MEDS ORDERED: MAGNESIUM HYDROXIDE 30 ML LIQUID UDC PO PRN (19:30)
[2021-06-24] MEDS ORDERED: ACETAMINOPHEN 325 MG TABLET PO PRN (19:30)
[2021-06-24] MEDS ORDERED: Z GUARD REMEDY PASTE 57 GM TUBE TOP PRN (19:30)
--- NOTE | 2021-06-24 19:45 | NUR ---
Patient will be assigned to room 321, PATRIC Hameed will be assigned to this patient.
[2021-06-24] MEDS: IPRATROPIUM BROMIDE 0.5 MG/2.5 ML NEBU NEB SCH (20:00)
[2021-06-24] MEDS: ALBUTEROL SULFATE 2.5 MG/3 ML NEBU NEB SCH (20:00)
[2021-06-24] MEDS ORDERED: AZITHROMYCIN 250 MG TABLET PO ONE (22:00)
--- NOTE | 2021-06-24 22:58 | NUR ---
GAVE REPORT TO PATRIC HU.
[2021-06-24] MEDS ORDERED: AZITHROMYCIN 250 MG TABLET ONE (23:15)
--- NOTE | 2021-06-24 23:40 | NUR ---
Pt. admitted to tele room 309 , under care of Dx: COPD exacerbation Belongs List completed
--- NOTE | 2021-06-24 23:45 | NUR ---
Admitted a 70 y/o male to Telemetry with an admitting diagnosis of COPD exacerbation. Pt is ambulatory, transferred to bed on his own. Pt is alert and oriented x 4, verbally responsive. SOB noted on exertion, on oxygen at 3LPM. Denies any pain or discomfort. Head to toe assessment done, belongings checked and placed at bedside. Safety measures initiated, call light within reach.
[2021-06-25] MEDS: ALBUTEROL SULFATE 2.5 MG/3 ML NEBU NEB SCH ×6 (00:10→21:53)
[2021-06-25] MEDS: IPRATROPIUM BROMIDE 0.5 MG/2.5 ML NEBU NEB SCH ×6 (00:10→21:53)
[2021-06-25 00:43] VITALS: BP 158/48
[2021-06-25 04:25] VITALS: BP 119/63
[2021-06-25 06:38] LABS: HEMATOCRIT 43.5 % (36.7-47.1); MEAN CORPUSCULAR HEMOGLOBIN 31.1 uug (23.8-33.4); MEAN CORPUSCULAR VOLUME 94.8 fL (73.0-96.2); PLATELET COUNT (AUTO) 172 K/uL (152-348)
[2021-06-25 07:02] LABS: CARBON DIOXIDE 28 mmol/L (21-32); CHLORIDE 101 mmol/L (98-107); CHOLESTEROL 157 mg/dL (<200); CREATININE 1.4 mg/dL (0.6-1.3); GLUCOSE 161 mg/dL (74-106); HDL CHOLESTEROL 87 mg/dL (40-60); PHOSPHOROUS 4.3 mg/dL (2.5-4.9); POTASSIUM 4.3 mmol/L (3.5-5.1); TRIGLYCERIDES 17 MG/DL (30-150); UREA NITROGEN, BLOOD 32 mg/dL (7-18)
[2021-06-25 08:00] VITALS: BP 151/69
[2021-06-25] MEDS: methylPREDNISolone SOD SUCC 40 MG/ML VIAL IV SCH (08:19)
[2021-06-25] MEDS: FUROSEMIDE 40 MG/4 ML VIAL IV SCH (08:19)
--- NOTE | 2021-06-25 09:56 | NUR ---
2D ECHO COMPLETED ORDERED PATIENT IS VERY UPSET NEEDED CONVINCING TO HAVE THE ECHO DONE EF IS 25-30 WITH DILATED LEFT ATRIUM PATIENT IS RESTING IN BED ENCOURAGED TO USE THE URINAL TO VOID BECAUSE HE IS ON STRICT INTAKE AND OUTPUT AND HE EXPRESSED UNDERSTANDING O2 IN PROGRESS AT 3L/M CALL LIGHTS AND PERSONAL BELONGINGS ARE WITHIN EASY REACH WILL CONTINUE TO OBSERVE.
--- NOTE | 2021-06-25 11:50 | NUR ---
HEART RATE IS 150-170 FLUCTUATING ASSYMPTOMATIC ON HHN TREATMENT WITH ALBUTEROL ALSO NOTIFIED HIM RE ECHO RESULTS NOTIFIED DR ANGULO WITH NO NEW ORDERS AT THIS TIME WILL CONTINUE TO OBSERVE AND PROVIDE COMFORT.
[2021-06-25] MEDS: NICOTINE 14 MG/24HR PATCH TD SCH (11:55)
[2021-06-25 12:00] VITALS: BP 148/75
[2021-06-25 16:00] VITALS: BP 119/56
--- NOTE | 2021-06-25 18:00 | NUR ---
HEART RATE IS BETTER HIGHEST SO FAR IS 109 HE IS IN BED AWAKE ALERT AND ORIENTED DENIES DISCOMFORTS CALL LIGHTS AND HIS PERSONAL BELONGINGS ARE WITHIN EASY REACH AT THIS TIME WILL CONTINUE TO OBSERVE AND PROVIDE SAFE AND THERAPEUTIC ENVIRONMENT AT ALL TIMES.
--- NOTE | 2021-06-25 19:30 | NUR ---
Received pt in bed, A&ox3, verbally responsive, able to make needs known. On oxygen at 3LPM, no signs of respiratory distress. Denies pain or discomfort. IV access intact and patent. Safety measures initiated, call light within reach.
[2021-06-25] MEDS: AZITHROMYCIN 250 MG TABLET PO SCH (20:23)
[2021-06-25 20:41] VITALS: BP 116/66
[2021-06-26 00:44] VITALS: BP 148/58
[2021-06-26] MEDS: IPRATROPIUM BROMIDE 0.5 MG/2.5 ML NEBU NEB SCH ×7 (01:35→23:13)
[2021-06-26] MEDS: ALBUTEROL SULFATE 2.5 MG/3 ML NEBU NEB SCH ×7 (01:35→23:13)
[2021-06-26] MEDS ORDERED: MORPHINE SULFATE 2 MG/1 ML DISP.SYRIN IV PRN (02:45)
[2021-06-26] MEDS ORDERED: hydrALAZINE HCL 25 MG TABLET PO PRN (02:45)
--- NOTE | 2021-06-26 02:45 | NUR ---
Pt complains of RLQ pain radiating to the back. Latest VS: BP- 162/62, P- 55. Pt also had 9 beats of [address]ach. notified Dr. Ballard and received orders: KUB, Hydralazine 25 mg PO q6hPRN for SBP >150 and morphine sulfate 2mg IV q4hPRN for pain. Will continue to monitor.
[2021-06-26 04:38] VITALS: BP 148/77
--- NOTE | 2021-06-26 06:36 | NUR ---
Pt sleeping in bed, arousable to name. No signs of acute distress, breathing treatment administered by RT. BP went down to 148/77 after morphine was given and pt verbalized pain was managed right away. NSR on tele. Safety measures maintained at all times. all needs attended to and met.
[2021-06-26 06:43] LABS: HEMATOCRIT 45.7 % (36.7-47.1); MEAN CORPUSCULAR HEMOGLOBIN 31.2 uug (23.8-33.4); MEAN CORPUSCULAR VOLUME 93.1 fL (73.0-96.2); PLATELET COUNT (AUTO) 190 K/uL (152-348)
[2021-06-26 07:22] LABS: MAGNESIUM 2.2 mg/dL (1.8-2.4); PHOSPHOROUS 4.7 mg/dL (2.5-4.9)
--- NOTE | 2021-06-26 08:00 | NUR ---
Discussed with pt to limit fluid intake. PT agreeable with plan of care.
[2021-06-26] MEDS: methylPREDNISolone SOD SUCC 40 MG/ML VIAL IV SCH (08:42)
[2021-06-26] MEDS: NICOTINE 14 MG/24HR PATCH TD SCH (08:42)
[2021-06-26] MEDS: FUROSEMIDE 40 MG/4 ML VIAL IV SCH (08:43)
[2021-06-26 12:00] VITALS: BP 147/66
[2021-06-26 16:00] VITALS: BP 151/66
--- NOTE | 2021-06-26 18:45 | NUR ---
Pt c/o constipation. Gave pt MOM.
--- NOTE | 2021-06-26 19:00 | NUR ---
RECEIVED REPORT FROM AM NURSE PT IS ALERT AND ORIENTED X4 PT SITTING UP ON BED WATCHING TV DENIES PAIN INFORMED PT HE IS ON FLUID RESTRICTION PT VERBALIZED UNDERSTANDING. WILL CONTINUE TO MONITOR FOR SAFETY AND PT TOOK HS MEDICATION NO SIGNS OF ADVERSE REACTION NOTED.
[2021-06-26 20:03] VITALS: BP 134/65
[2021-06-26] MEDS: AZITHROMYCIN 250 MG TABLET PO SCH (21:28)
[2021-06-27] MEDS ORDERED: MIRALAX 17 GM POWD.PACK PO PRN (00:30)
[2021-06-27] MEDS: ALBUTEROL SULFATE 2.5 MG/3 ML NEBU NEB SCH ×4 (03:55→15:57)
[2021-06-27] MEDS: IPRATROPIUM BROMIDE 0.5 MG/2.5 ML NEBU NEB SCH ×4 (03:55→15:57)
[2021-06-27 04:21] VITALS: BP 141/78
--- NOTE | 2021-06-27 08:00 | NUR ---
Discussed with pt not to drink too much water to help with his breathing. Pt agreeable with plan of care. IV no s/s of infiltration. Put pt on r/a 02 sat 905%.
[2021-06-27] MEDS: NICOTINE 14 MG/24HR PATCH TD SCH (08:22)
[2021-06-27] MEDS: methylPREDNISolone SOD SUCC 40 MG/ML VIAL IV SCH (08:22)
[2021-06-27] MEDS ORDERED: FUROSEMIDE 40 MG/4 ML VIAL IV SCH (09:00)
--- NOTE | 2021-06-27 10:00 | NUR ---
Physical therapy eval done. Pt denies any c/o pain.
[2021-06-27 11:34] VITALS: BP 152/83
--- NOTE | 2021-06-27 11:42 | NUR ---
pattern worker at bedside. Discussed with pt purpose of getting his blood drawn per request of physcian. Pt continues to refuse blood draw.
--- NOTE | 2021-06-27 12:21 | NUR ---
Office Nurse Practitioner Consultation: Office Nurse Practitioner consultation requested for homelessness. Patient is a 70 year old male, who came to the ED for shortness of breath. Per ED physician's note, patient has a history of COPD, current tobacco abuse, smokes methamphetamine, and received his first COVID vaccine one day prior to this admission. This STATION ENGINEER met with the patient bedside. Patient is awake, alert, oriented, was receptive to meeting with this STATION ENGINEER, however his responses were very short and muffled. Patient states he lives on the streets, but did not provide additional information. This STATION ENGINEER attempted to explore patient's psychosocial needs, but patient did not engage much in this interview. This STATION ENGINEER offered to provide patient with homeless community resources, but patient initially declined them and then asked for resources only for meals/food pantries. Discharge plans discussed and patient stated "I'll be going somewhere in [place]", but did not elaborate further. This STATION ENGINEER was present in the room when RN Rogers came in to inform patient that patient's attending physician had ordered blood work, but patient refused blood draw (see RN notes). This STATION ENGINEER provided patient with the following resources, per his request: The [facility] homeless directory which provides a list of places that individuals can go to throughout the week for hot meals, sack lunches, food pantries, and showers. [employer] [address] [place] [address] [employer] [phone] [facility] [phone] [facility] [phone] [facility] [phone] [facility] [address] [place] [address] [facility] [facility]
[2021-06-27] MEDS ORDERED: ALBU2.5V7 NEB (14:05)
[2021-06-27] MEDS ORDERED: NICO-671 TD (14:05)
[2021-06-27] MEDS ORDERED: ACET325T53 PO (14:05)
[2021-06-27 15:45] VITALS: BP 141/87
--- NOTE | 2021-06-27 17:30 | NUR ---
Discharge instructions given to patient. Pt has resources given by social insurance adviser. IV D/C. Instructed pt to establish medical care. Pt verbalized understanding. Prescription given for nicotine patch.
[2021-06-27] MEDS ORDERED: FURO-152 PO (19:59)
== END 2021-06-27 17:30 | disposition home or self-care (01) | DRG 133 ==
LOC: ER 16:07 → TELE3 23:17 → MEDSURG3 06-26 10:15
PROVIDERS: ADMIT Family Medicine; ATTEND Nurse Practitioner Acute Care
DX: J96.00 Acute respiratory failure, unspecified whether with hypoxia or hypercapnia (principal); N17.0 Acute kidney failure with tubular necrosis; I50.33 Acute on chronic diastolic (congestive) heart failure; E44.0 Moderate protein-calorie malnutrition; J44.1 Chronic obstructive pulmonary disease with (acute) exacerbation; I11.0 Hypertensive heart disease with heart failure; F17.210 Nicotine dependence, cigarettes, uncomplicated; Z59.0 Homelessness; K59.00 Constipation, unspecified; R73.9 Hyperglycemia, unspecified; E44.1 Mild protein-calorie malnutrition; E88.09 Other disorders of plasma-protein metabolism, not elsewhere classified; R31.9 Hematuria, unspecified; Z87.11 Personal history of peptic ulcer disease; Z20.822 Contact with and (suspected) exposure to COVID-19; F15.90 Other stimulant use, unspecified, uncomplicated; Z71.6 Tobacco abuse counseling; Z68.20 Body mass index [BMI] 20.0-20.9, adult
CPT/HCPCS: 36415; 70030-TC; 71045; 74018; 83735; 84100; 85025; 93005; 93307; 94640; 94664; 97161; A4663; G0378; J1940; J2270; J2920; J2930; J3590; J7050; Q0144

== ENCOUNTER 2021-11-10 16:47 | Emergency (ER) | payer MEDICARE, OTHER ==
[~2021-11-10] VITALS: Ht 172.7 cm; Wt 68.0 kg
[~2021-11-10 16:47] MED LIST changes: +ACET325T53 PO; +ALBU2.5V7 NEB; +FURO-152 PO; +NICO-671 TD
[2021-11-10] MEDS ORDERED: IPRATROPIUM BROMIDE 0.5 MG/2.5 ML NEBU NEB ONE (18:45)
[2021-11-10] MEDS ORDERED: ALBUTEROL SULFATE 2.5 MG/3 ML NEBU NEB ONE (18:45)
[2021-11-10 19:01] LABS: HEMATOCRIT 42.1 % (36.7-47.1); MEAN CORPUSCULAR HEMOGLOBIN 31.4 uug (23.8-33.4); MEAN CORPUSCULAR VOLUME 93.7 fL (73.0-96.2); PLATELET COUNT (AUTO) 188 K/uL (152-348)
[2021-11-10 19:05] LABS: CARBON DIOXIDE 33 mmol/L (21-32); CHLORIDE 111 mmol/L (98-107); CREATININE 1.4 mg/dL (0.6-1.3); GLUCOSE 85 mg/dL (74-106); POTASSIUM 5.2 mmol/L (3.5-5.1); UREA NITROGEN, BLOOD 24 mg/dL (7-18)
[2021-11-10] MEDS ORDERED: IPRATROPIUM BROMIDE 0.5 MG/2.5 ML NEBU ONE (19:06)
[2021-11-10] MEDS ORDERED: ALBUTEROL SULFATE 2.5 MG/3 ML NEBU ONE (19:06)
[2021-11-10] MEDS ORDERED: methylPREDNISolone SOD SUCC 125 MG/2 ML VIAL IV ONE (19:15)
[2021-11-10 19:17] LABS: ALANINE AMINOTRANSFERASE 66 U/L (16-63); ALKALINE PHOSPHATASE 107 U/L (50-136); ASPARTATE AMINOTRANSFERASE 53 U/L (15-37); BILIRUBIN,DIRECT 0.1 mg/dL (0.0-0.2); BILIRUBIN,TOTAL 0.3 mg/dL (0.2-1.0); TOTAL PROTEIN, SERUM 7.5 g/dL (6.4-8.2)
--- NOTE | 2021-11-10 19:46 | NUR ---
Patient refusing ABG, pt is on room air, DR TAYLOR notified . Mallika DURÁN RECREATION LEADER Addendum: 11/10/21 at 1947 by BRIGITTE DURÁN RT Amended: Links added.
[2021-11-10] MEDS ORDERED: ALBU8.5H8 IH (19:58)
[2021-11-10] MEDS ORDERED: PRED20TA PO (19:58)
--- NOTE | 2021-11-10 20:02 | NUR ---
pt refused iv solumedrol. ANDRESSA tipton aware.
[2021-11-10] MEDS ORDERED: methylPREDNISolone SOD SUCC 125 MG/2 ML VIAL ONE (20:07)
--- NOTE | 2021-11-10 20:10 | NUR ---
pt signed out ama.
--- NOTE | 2021-11-10 20:29 | NUR ---
Pt refused departing vitals and education
== END 2021-11-10 20:30 | disposition left against medical advice (07) ==
LOC: ER 16:57
DX: J98.01 Acute bronchospasm (principal); Z59.02 Unsheltered homelessness; R09.89 Other specified symptoms and signs involving the circulatory and respiratory systems; J98.11 Atelectasis; F17.210 Nicotine dependence, cigarettes, uncomplicated; Z88.6 Allergy status to analgesic agent; Z91.018 Allergy to other foods; Z53.29 Procedure and treatment not carried out because of patient's decision for other reasons
CPT/HCPCS: 36415; 70030-TC; 71045; 83605; 85025; 87040; 93005; A4663; J2930; J3590

== ENCOUNTER 2021-12-26 22:16 | Inpatient (IN) | payer MEDICARE, OTHER ==
[~2021-12-26] VITALS: Ht 170.2 cm; Wt 63.5 kg
[~2021-12-26 22:16] MED LIST changes: +ALBU8.5H8 IH
[2021-12-26] MEDS ORDERED: HYDROMORPHONE 1 MG/1 ML DISP.SYRIN IV ONE (22:30)
[2021-12-26] MEDS ORDERED: ASPIRIN 81 MG TAB.CHEW PO ONE (22:30)
[2021-12-26] MEDS ORDERED: MAGNESIUM SULFATE 2 GM in IV DEXTROSE 5% 100 ML IV ONE (22:30)
[2021-12-26] MEDS ORDERED: PROCHLORPERAZINE EDISYLATE 10 MG/2 ML VIAL IV ONE (22:30)
--- NOTE | 2021-12-26 22:35 | NUR ---
pt ambulated to room 1b pt c/o cp. ekg performed. Dr. Rahman at bedside for MSE, new orders received.
[2021-12-26] MEDS ORDERED: ASPIRIN 81 MG TAB.CHEW ONE (22:48)
[2021-12-26] MEDS ORDERED: MAGNESIUM SULFATE/D5W 200 ML ONE (22:49)
[2021-12-26] MEDS ORDERED: PROCHLORPERAZINE EDISYLATE 10 MG/2 ML VIAL ONE (22:49)
[2021-12-26] MEDS ORDERED: HYDROMORPHONE 1 MG/1 ML DISP.SYRIN ONE (22:49)
[2021-12-26 22:58] LABS: CARBON DIOXIDE 29 mmol/L (21-32); CHLORIDE 105 mmol/L (98-107); CREATININE 1.6 mg/dL (0.6-1.3); GLUCOSE 141 mg/dL (74-106); MAGNESIUM 1.9 mg/dL (1.8-2.4); POTASSIUM 5.1 mmol/L (3.5-5.1); UREA NITROGEN, BLOOD 31 mg/dL (7-18)
[2021-12-26 23:06] LABS: HEMATOCRIT 42.5 % (36.7-47.1); MEAN CORPUSCULAR HEMOGLOBIN 31.4 uug (23.8-33.4); MEAN CORPUSCULAR VOLUME 93.6 fL (73.0-96.2); PLATELET COUNT (AUTO) 186 K/uL (152-348)
[2021-12-26 23:10] LABS: NEUTROPHILS % (MANUAL) 0 % (42-75)
[2021-12-26 23:11] LABS: ALANINE AMINOTRANSFERASE 445 U/L (16-63); ALKALINE PHOSPHATASE 124 U/L (50-136); ASPARTATE AMINOTRANSFERASE 273 U/L (15-37); BILIRUBIN,DIRECT 0.3 mg/dL (0.0-0.2); BILIRUBIN,TOTAL 0.9 mg/dL (0.2-1.0); TOTAL PROTEIN, SERUM 7.3 g/dL (6.4-8.2)
[2021-12-26 23:13] LABS: THYROID STIMULATING HORMONE 1.747 mIU/mL (0.358-3.740)
[2021-12-26] MEDS ORDERED: ENOXAPARIN SODIUM 60 MG/0.6 ML DISP.SYRIN SQ ONE (23:15)
[2021-12-26] MEDS ORDERED: DILTIAZEM HCL 25 MG IV IV ONE (23:15)
[2021-12-27] MEDS ORDERED: NITROGLYCERIN OINT 1 GM PACKET TP ONE ×2
[2021-12-27] MEDS ORDERED: THIAMINE HCL 100 MG TABLET PO ONE
[2021-12-27] MEDS ORDERED: DILTIAZEM HCL 25 MG IV ONE (00:01)
[2021-12-27] MEDS ORDERED: THIAMINE HCL 100 MG TABLET ONE (00:01)
[2021-12-27] MEDS ORDERED: ENOXAPARIN SODIUM 60 MG/0.6 ML DISP.SYRIN SQ ONE (00:01)
--- NOTE | 2021-12-27 00:09 | NUR ---
pt denies pain. pt a/o. cardizem ivp given. lovenox given sq.
--- NOTE | 2021-12-27 00:41 | NUR ---
call placed to [facility] for admission to hospital.
--- NOTE | 2021-12-27 00:41 | NUR ---
inventory of belongings done. security has taken two lighters, cigarettes, one pocket knife, one can of compressed air.
--- NOTE | 2021-12-27 00:55 | NUR ---
Lizet SZYMANSKI from [employer] called back spoke with Dr. Rahman.
[2021-12-27] MEDS ORDERED: ACETAMINOPHEN 325 MG TABLET PO PRN (01:00)
[2021-12-27] MEDS ORDERED: ONDANSETRON 4 MG/2 ML VIAL IV PRN (01:00)
[2021-12-27] MEDS ORDERED: REMEDY ESSENTIAL ZINC PASTE 113 GM TP PRN (01:00)
[2021-12-27] MEDS ORDERED: MAGNESIUM HYDROXIDE 30 ML LIQUID UDC PO PRN (01:00)
--- NOTE | 2021-12-27 03:25 | NUR ---
report given to Will RN, pt to go to room 315.
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
--- NOTE | 2021-12-27 03:56 | NUR ---
pt transferred to room 315 with all belongings via [facility]. Will RN at bedside to receive the pt.
[2021-12-27 04:10] VITALS: BP 104/65
[2021-12-27] MEDS ORDERED: PIPERACILLIN/TAZOBACTAM/D5W 50 ML IV ONE (04:48)
[2021-12-27] MEDS ORDERED: ALBUTEROL SULFATE 2.5 MG/3 ML NEBU NEB PRN (06:00)
[2021-12-27] MEDS ORDERED: PIPERACILLIN SODIUM/TAZOBACTAM 3.375 G in IV DEXTROSE 5% 50 ML IV SCH ×2 (06:00→12:00)
--- NOTE | 2021-12-27 06:07 | NUR ---
PATIENT ASLEEP BUT AROUSABLE, TELE MONITOR A FIB, NO COMPLAIN OF PAIN, PATIENT IS COVID VACCINATED BY [employer].
[2021-12-27] MEDS ORDERED: ALBUTEROL SULFATE 8 GM HFA.AER.AD INH SCH (07:05)
[2021-12-27] MEDS ORDERED: LIDOCAINE-MPF 2% 5 ML VIAL ONE (07:05)
[2021-12-27] MEDS ORDERED: PROPOFOL 200 MG/20 ML BOTTLE ONE (07:05)
[2021-12-27 07:30] VITALS: BP 95/64
[2021-12-27 07:53] LABS: HEMATOCRIT 38.7 % (36.7-47.1); MEAN CORPUSCULAR HEMOGLOBIN 30.7 uug (23.8-33.4); MEAN CORPUSCULAR VOLUME 92.9 fL (73.0-96.2); PLATELET COUNT (AUTO) 161 K/uL (152-348)
[2021-12-27] MEDS ORDERED: DILTIAZEM HCL 25 MG IV IV ONE (08:00)
[2021-12-27 08:03] LABS: ALANINE AMINOTRANSFERASE 379 U/L (16-63); ALKALINE PHOSPHATASE 97 U/L (50-136); ASPARTATE AMINOTRANSFERASE 227 U/L (15-37); BILIRUBIN,TOTAL 0.9 mg/dL (0.2-1.0); CARBON DIOXIDE 26 mmol/L (21-32); CHLORIDE 107 mmol/L (98-107); CREATININE 1.5 mg/dL (0.6-1.3); GLUCOSE 131 mg/dL (74-106); MAGNESIUM 2.3 mg/dL (1.8-2.4); POTASSIUM 3.8 mmol/L (3.5-5.1); TOTAL PROTEIN, SERUM 5.9 g/dL (6.4-8.2); UREA NITROGEN, BLOOD 29 mg/dL (7-18)
--- NOTE | 2021-12-27 08:03 | NUR ---
REMAINS AFIB 119-133/MIN, DENIES SOB OR CHEST PAIN. SEEN BY DR MÁRQUEZ AND DR ANGULO. SEE NOTES
[2021-12-27] MEDS: APIXABAN 2.5 MG TABLET PO SCH ×2 (08:17→21:04)
[2021-12-27] MEDS: DILTIAZEM HCL CD 120 MG CAP.SR.24H PO SCH (08:18)
--- NOTE | 2021-12-27 10:00 | NUR ---
PATIENT CONVERTED TO SR RATE OF 78/MIN AFTER CARDIZEM IV OF 10 MG ALONG WITH PO 120 MGS. DENIES CHEST PAIN OR SOB. STATUS CHANGED TO TELE. OBSERVED
--- NOTE | 2021-12-27 11:37 | NUR ---
Clinical Social Work Note SW attempted to visit patient for homeless consult, but patient was asleep. SW attempted to wake up patient by knocking on door multiple times and calling his name. Patient did not respond. Plan: SW will come visit patient at a later time.
[2021-12-27 11:55] VITALS: BP 105/58
[2021-12-27] MEDS: PIPERACILLIN SODIUM/TAZOBACTAM 3.375 G in IV DEXTROSE 5% 100 ML IV SCH ×2 (13:32→21:01)
[2021-12-27 13:51] LABS: NEUTROPHILS % (MANUAL) 0 % (42-75)
--- NOTE | 2021-12-27 14:13 | NUR ---
Clinical Social Work Note SW consult was requested for homelessness. Patient is a 71 year old male who alert and oriented x4. Patient presents with a withdrawn mood and congruent affect. Patient spoke softy, very little and avoided eye contact with SW. SW inquired about patient currently living situation and stated that he was living on the streets. SW tried to explore more with patient but he did not want to elaborate. SW discussed with patient information about shelters and proceed to provide homeless packet, but patient stated that he did not want to go to a residential. Patient stated that he is only interested in information regarding hot meals, pantries, and hot shower locations. SW explained that the information for hot meals and hot showers are included in the homeless packet and patient agreed to take packet. SW provided resources for the following hot meals, food pantries, and hot showers. SW provided patient with the [facility] homeless directory which includes a list of locations that patient can access hot meals, food pantries, and hot showers. Those on the list included: [facility] ([address] [place] [address] ), [facility] ([address] [place] [address] ). Plan: SW will have patient sign homeless waiver and provide TAP card upon patients discharge.
[2021-12-27 15:59] LABS: *CREATININE,URINE 89.8 mg/dL (30-125); *URINE TOTAL PROTEIN RANDOM 34.2 mg/dL (<150/24HR)
[2021-12-27 16:02] VITALS: BP 114/90
[2021-12-27 16:07] LABS: *BILIRUBIN,URIN NEGATIVE (NEGATIVE); *BLOOD, URINE NEGATIVE (NEGATIVE); *CLARITY,URINE CLEAR (CLEAR); *COLOR,URINE YELLOW (YELLOW); *KETONES,URINE NEGATIVE (NEGATIVE); LEUKOCYTE ESTERASE ,URINE NEGATIVE (NEGATIVE); NITRITE, URINE NEGATIVE (NEGATIVE); PH,URINE 5.5 (5.0-8.0); UGLUCOSE NEGATIVE (NEGATIVE)
[2021-12-27 16:32] LABS: *AMPHETAMINE, URINE POSITIVE (NEGATIVE); *CANNABINOID, URINE NEGATIVE (NEGATIVE); *COCCAINE, URINE NEGATIVE (NEGATIVE); *OPIATE, URINE POSITIVE (NEGATIVE); *PHENCYCLIDINE SCREEN,URINE NEGATIVE (NEGATIVE)
--- NOTE | 2021-12-27 17:49 | NUR ---
CONTINUE TELE MONITORING. NO ACUTE CHANGE FROM MORNING ASSESSMENT
--- NOTE | 2021-12-27 20:00 | NUR ---
PATIENT HAS EPISODE OF ANXIETY, HYPERVENTILATE, V/S WNL NOTIFY DR ANGULO WITH NO NEW ORDER, CONT TO MONITOR, OXYGEN SAT WNL AT 2 LITER 98%, ENCOURAGE TO KEEP OXYGEN, CALL LIGHT WITHIN REACH.
[2021-12-27 20:35] VITALS: BP 113/62
[2021-12-28 00:17] VITALS: BP 108/60
[2021-12-28 04:45] VITALS: BP 126/65
[2021-12-28] MEDS: PIPERACILLIN SODIUM/TAZOBACTAM 3.375 G in IV DEXTROSE 5% 100 ML IV SCH (05:06)
[2021-12-28 06:06] LABS: HEPATITIS A AB, IgM Negative (Negative)
[2021-12-28 06:16] LABS: HEMATOCRIT 37.7 % (36.7-47.1); MEAN CORPUSCULAR HEMOGLOBIN 31.3 uug (23.8-33.4); MEAN CORPUSCULAR VOLUME 92.7 fL (73.0-96.2); PLATELET COUNT (AUTO) 170 K/uL (152-348)
--- NOTE | 2021-12-28 06:29 | NUR ---
PATIENT ALERT ORIENTED, NO SOB NO CHEST PAIN, TELE MONITOR SINUS RHYTHM, PATIENT SLEPT MOST OF THE NIGHT, WITH EPISODE OF ANXIETY,ADMIT HE CRAVING FOR ILLICIT DRUGS, HAVING A LITTLE ANXIETY, OFFERED TYLENOL FOR COMFORT BUT REFUSED. PATIENT GIVEN FOOD, SNACK MOST PART OF NIGHT AND DECAF COFFEE FOR COMFORT WITH HELP. CONT ABX FOR INFECTION, CONT TO MONITOR.
[2021-12-28 06:32] LABS: NEUTROPHILS % (MANUAL) 0 % (42-75)
[2021-12-28 06:46] LABS: ALANINE AMINOTRANSFERASE 395 U/L (16-63); ALKALINE PHOSPHATASE 101 U/L (50-136); ASPARTATE AMINOTRANSFERASE 247 U/L (15-37); BILIRUBIN,TOTAL 0.9 mg/dL (0.2-1.0); CARBON DIOXIDE 27 mmol/L (21-32); CHLORIDE 106 mmol/L (98-107); CREATINE KINASE, TOTAL 51 U/L (39-308); CREATININE 1.5 mg/dL (0.6-1.3); GLUCOSE 117 mg/dL (74-106); MAGNESIUM 1.9 mg/dL (1.8-2.4); PHOSPHOROUS 3.7 mg/dL (2.5-4.9); POTASSIUM 4.3 mmol/L (3.5-5.1); TOTAL PROTEIN, SERUM 6.2 g/dL (6.4-8.2); UREA NITROGEN, BLOOD 24 mg/dL (7-18)
[2021-12-28] MEDS: APIXABAN 2.5 MG TABLET PO SCH (08:51)
[2021-12-28] MEDS: DILTIAZEM HCL CD 120 MG CAP.SR.24H PO SCH (08:58)
[2021-12-28 11:25] VITALS: BP 139/65
--- NOTE | 2021-12-28 13:15 | NUR ---
Patient vomit fresh, red blood in moderate amount. Patient vital signs taken and BP 144/66 HR 58 97% O2 saturation on 2L O2 via NC. Dr. Bautista notified and made aware. New orders given and carried out. Sinus Rhythm on bus driver/monitor. Will continue to monitor.
[2021-12-28 13:29] LABS: HEMATOCRIT 39.5 % (36.7-47.1)
[2021-12-28] MEDS ORDERED: ONDANSETRON 4 MG/2 ML VIAL IV PRN (13:30)
[2021-12-28] MEDS ORDERED: METOCLOPRAMIDE HCL 10 MG/2 ML VIAL IV PRN (13:30)
[2021-12-28] MEDS ORDERED: PANTOPRAZOLE SODIUM 40 MG VIAL IV SCH (13:30)
--- NOTE | 2021-12-28 15:20 | NUR ---
Patient had episode of vomiting fresh, red blood in moderate amount. Patient vital signs taken and BP 123/49 HR 53 100% O2 saturation on 1L O2 via NC. Denies pain/ discomfort. Denies SOB/ . Dr. Bautista notified and made aware. Per Dr. Bautista, GI notified for consult. New orders given and carried out. Sinus Rhythm on monitor tech. Will continue to monitor.
[2021-12-28 15:52] VITALS: BP 126/69
[2021-12-28] MEDS ORDERED: MORPHINE SULFATE 2 MG/1 ML DISP.SYRIN IV ONE (18:15)
--- NOTE | 2021-12-28 19:18 | NUR ---
Patient complained of abdominal pain. Morphine 1mg IV once given. BP 122/42 HR 62. Will continue to monitor.
--- NOTE | 2021-12-28 19:30 | NUR ---
Wasted 1mg Morphine.
[2021-12-28 20:00] VITALS: BP 135/86
[2021-12-28] MEDS: PANTOPRAZOLE SODIUM 40 MG VIAL IV SCH (20:22)
[2021-12-29] VITALS: BP 128/76
[2021-12-29 04:00] VITALS: BP 135/81
--- NOTE | 2021-12-29 04:44 | NUR ---
Awake alert and oriented. Patient on telemetry, normal sinus rythmn. Earlier this shift, patient requested for a sleeping pill and pain medicines. Told patient nothing was ordered since he is NPO and going for a procedure early this am, possible EGD today with Dr Maria. Patient get upset and wants to leave AMA. Dr Bautista was aware and nothing order. Explained to patient if he wants to go or to cancel the procedure. Patient went back to bed and sleep. At 0259 patient has 7 beats of Vtach. No complaints presented. VSS Patient sleeping. Will monitor patient.
--- NOTE | 2021-12-29 05:30 | NUR ---
patient went to OR for EGD.
--- NOTE | 2021-12-29 07:08 | NUR ---
patient came back from OR from EGD. No esophageal varices per OR staff.
[2021-12-29] MEDS ORDERED: DILT120C87 PO (07:40)
[2021-12-29 08:02] VITALS: BP 124/70
[2021-12-29] MEDS: DILTIAZEM HCL CD 120 MG CAP.SR.24H PO SCH (08:02)
[2021-12-29] MEDS: PANTOPRAZOLE SODIUM 40 MG VIAL IV SCH (08:02)
[2021-12-29 09:07] LABS: A/G RATIO 0.9 (0.7-1.7); ALBUMIN 2.7 g/dL (2.9-4.4); ALPHA-1-GLOBULIN 0.3 g/dL (0.0-0.4); ALPHA-2-GLOBULIN 0.7 g/dL (0.4-1.0); BETA GLOBULIN 0.8 g/dL (0.7-1.3); GAMMA GLOBULIN 1.2 g/dL (0.4-1.8); GLOBULIN, TOTAL 2.9 g/dL (2.2-3.9); M-SPIKE Not Observed g/dL (Not Observed)
--- NOTE | 2021-12-29 09:17 | NUR ---
new discharge orders. patient reminded to "f/u with PCP in 1 week, 2)f/u with cardio as scheduled, 3)f/u with penitentiary, return to nearest ER or call 911 if symptoms worsen." patient states understanding. belonging inventory completed all belongings present. all paperwork signed. patient is homeless, resource packet handed to patient, offered assistance with penitentiary placement, patient refused states he is fine. IV line removed minimal bleeding noted, dressing applied.
--- NOTE | 2021-12-29 09:50 | NUR ---
patient states he is ready to leave, accompanied him downstairs to lobby, patients gait is stable, v/s upon leaving were wnl, no c.o pain.
== END 2021-12-29 09:53 | disposition home or self-care (01) | DRG 280 ==
LOC: ER 22:18 → DOU3 12-27 03:28 → TELE-TD3 12-27 03:47 → TELE3 12-27 11:24 → MEDSURG3 12-28 07:45 → TELE3 12-28 13:32
PROVIDERS: ADMIT Family Medicine; ATTEND Family Medicine
PROC: 0DJ08ZZ Inspection of Upper Intestinal Tract, Via Natural or Artificial Opening Endoscopic (ICD-10-PCS; principal; 2021-12-29)
DX: I48.0 Paroxysmal atrial fibrillation (principal); I21.A1 Myocardial infarction type 2; N17.0 Acute kidney failure with tubular necrosis; K72.00 Acute and subacute hepatic failure without coma; J18.9 Pneumonia, unspecified organism; I13.0 Hypertensive heart and chronic kidney disease with heart failure and stage 1 through stage 4 chronic kidney disease, or unspecified chronic kidney disease; K92.0 Hematemesis; I50.22 Chronic systolic (congestive) heart failure; J44.0 Chronic obstructive pulmonary disease with (acute) lower respiratory infection; I42.8 Other cardiomyopathies; F15.10 Other stimulant abuse, uncomplicated; B19.20 Unspecified viral hepatitis C without hepatic coma; N18.9 Chronic kidney disease, unspecified; K22.70 Barrett's esophagus without dysplasia; F17.210 Nicotine dependence, cigarettes, uncomplicated; K29.70 Gastritis, unspecified, without bleeding; Z20.822 Contact with and (suspected) exposure to COVID-19; Z59.00 Homelessness unspecified; F10.10 Alcohol abuse, uncomplicated; R73.9 Hyperglycemia, unspecified
CPT/HCPCS: 36415; 70030-TC; 71045; 76700; 83605; 83735; 83970; 84100; 84155; 84156; 84165; 84300; 84443; 85018; 85025; 85730; 86706; 86709; 86803; 93005; 93307; A4663; C9113; G0378; J0780; J1170; J1650; J2270; J2405; J2543; J3475; J3490; J3535; J7050; J7060

== ENCOUNTER 2022-01-01 03:39 | Inpatient (IN) | payer MEDICARE, OTHER ==
[~2022-01-01] VITALS: Ht 175.3 cm; Wt 65.8 kg
[~2022-01-01 03:39] MED LIST changes: -ACET325T53 PO; -ALBU2.5V7 NEB; -ALBU8.5H8 IH; +DILT120C87 PO; -FURO-152 PO; -NICO-671 TD; -PRED20TA PO
--- NOTE | 2022-01-01 03:45 | NUR ---
The Pt, a homeless alchohlic and former IV drug user, was brought in by RA after receiving a phone call from the pt's neighbor, another homeless person in the tent next to the pt's sleeping bag. Pt was placed into room ED1B in pos of comfort, connecytePt was complaining of severe CP, however, upon arriving pt stated that the pain was mild to moderate. Pt had a very grimmy and desheveled appearance and stated that he has been living on the streets for approx 40 years. VSS, 130/80, 58bpm, 100%RA, 16rpm, PE WNL, controled afib on the bedside monitor, HR 62bpm. strong and equal tower equipment installer strength bilat, good distal pulses x4 ext. AAOx4, competely lucid and can carry a conversation. States that he was complaining of CP and his neighbor called 911, unbeknownst to him. Pt doing fine, completely stable, denies any severe CP and is showing a lot of atitiude and rudeness toward hospital staff and security. Denies any sob, dizziness, n/v, or discomfort. No s/sx of distress present.
--- NOTE | 2022-01-01 03:48 | NUR ---
EDMD at bedside for eval. EKG perform, showed controlled afib.
[2022-01-01] MEDS ORDERED: ENOXAPARIN SODIUM 30 MG/0.3 ML DISP.SYRIN SUBCUT ONE (04:00)
[2022-01-01] MEDS ORDERED: FENTANYL CITRATE 100 MCG/2 ML AMPUL IV ONE (04:00)
[2022-01-01] MEDS ORDERED: MAGNESIUM SULFATE 2 GM in IV DEXTROSE 5% 100 ML IV ONE (04:00)
[2022-01-01] MEDS ORDERED: PROPOFOL 1,000 MG/100 ML BOTTLE IV ONE (04:00)
[2022-01-01] MEDS ORDERED: ASPIRIN 81 MG TAB.CHEW PO ONE (04:00)
[2022-01-01] MEDS ORDERED: DILTIAZEM HCL 25 MG IV IV ONE ×3 (04:00→06:15)
[2022-01-01] MEDS ORDERED: POTASSIUM BICARBONATE/CIT AC 25 MEQ TABLET.EFF PO ONE (04:15)
--- NOTE | 2022-01-01 04:16 | NUR ---
50mEq of KCL given to patient in form of Klyte tabs in 16oz of H2O, pt tolerated well.
[2022-01-01] MEDS ORDERED: FENTANYL CITRATE 100 MCG/2 ML AMPUL ONE (04:17)
[2022-01-01] MEDS ORDERED: PROPOFOL 100 ML ONE (04:17)
[2022-01-01] MEDS ORDERED: MAGNESIUM SULFATE/D5W 200 ML ONE (04:18)
[2022-01-01] MEDS ORDERED: DILTIAZEM HCL 25 MG IV ONE ×2 (04:18→06:23)
[2022-01-01] MEDS ORDERED: ENOXAPARIN SODIUM 30 MG/0.3 ML DISP.SYRIN ONE (04:19)
--- NOTE | 2022-01-01 04:20 | NUR ---
Pt given 2 Klyte tablets to drink in 2 cups with approx 16oz H2O; pt drank entire medication cocktail while complaining, being extremely rude and disrespectful to staff, refusing to cooperate and refusing treatment. Complaining of extreme pain coming from IV started by RA in the field. IV looks good, no signs of infiltation are excoriation. Flushes well with no resistance, pt denies any pain during flushing.
--- NOTE | 2022-01-01 04:20 | NUR ---
Asprin given per order, Mag hung and about to connect to pt
--- NOTE | 2022-01-01 04:21 | NUR ---
Pt is complaining about increasing pain at IV site. Pt getting Irrate regarding pain. Pt informed that if we DC IV, we MUST start another one, for his condition is guarded. Pt agreed. IV in Lt upper arm DCed without difficulty. phys therapist Sebastian looking to start new IV.
--- NOTE | 2022-01-01 04:22 | NUR ---
Both myself and Sebastian RN looked for quite some time to start another IV but could not find a michelle that could support a catheter. A few attempts were made to start another line but where unsuccessful due to poor vascular health and decades of IV drug use. Every attempt had a blood return but the vain immediately would collapse. EDMD asked for a central line. Pt becoming increaseingly combative, disrespectful and insulting to all the nurses.
[2022-01-01] MEDS ORDERED: POTASSIUM BICARBONATE/CIT AC 25 MEQ TABLET.EFF ONE (04:24)
[2022-01-01] MEDS ORDERED: ASPIRIN 81 MG TAB.CHEW ONE (04:29)
--- NOTE | 2022-01-01 04:30 | NUR ---
Pt refusing IV and all treatment. pt told that this is not a halfway and that he can leave when ever he wants, he is not being held here against his will. Pt then got up, got all his belonging and walked out of dept refusing to sign AMA form. Security present at this time, and escorted him out.
--- NOTE | 2022-01-01 04:45 | NUR ---
Security states that pt is in amb bay, on the ground complaining of CP and SOB, reporting analyst Jhony responded with wc. Pt brought back to room ED1B, reconnected to monitor and treatment was continued.
[2022-01-01 04:46] LABS: HEMATOCRIT 43.3 % (36.7-47.1); MEAN CORPUSCULAR HEMOGLOBIN 30.9 uug (23.8-33.4); MEAN CORPUSCULAR VOLUME 93.4 fL (73.0-96.2); PLATELET COUNT (AUTO) 231 K/uL (152-348)
[2022-01-01 04:54] LABS: CARBON DIOXIDE 26 mmol/L (21-32); CHLORIDE 101 mmol/L (98-107); CREATININE 1.6 mg/dL (0.6-1.3); GLUCOSE 101 mg/dL (74-106); POTASSIUM 4.4 mmol/L (3.5-5.1); UREA NITROGEN, BLOOD 30 mg/dL (7-18)
[2022-01-01] MEDS ORDERED: DILTIAZEM HCL 90 MG TABLET PO ONE (05:00)
--- NOTE | 2022-01-01 05:00 | NUR ---
Pt brought back to ER via wheelchair. Patient walked outside of ER after going against medical advice of Dr. Rahman, but was refusing to sign the AMA form. Patient then laid on the ground of the ambulance driveway, refusing to get up, stating he has trouble breathing and having chestpain. Patient changed his mind and agreed to be treated, and was brought back to ER via wheelchair with assistance from security, no falls noted.
[2022-01-01 05:34] LABS: ETHANOL < 3 MG/DL (0-0)
--- NOTE | 2022-01-01 05:39 | NUR ---
EDMD at bedside to insert a femoral central line, tray set up and ready with 8.5 gloves, betadine and local anesthetics. Charge at bedside to [facility] EDMD.
--- NOTE | 2022-01-01 05:45 | NUR ---
Central line placed into femoral artery without difficulty by EDMD.
--- NOTE | 2022-01-01 05:45 | NUR ---
EDMD at bedside to cardiovert pt. 1.5 ml of sublimaze admin to pt, with 6ml of Propofol, another 4 ml of propophol was given shortly there after. First shock given at 140J upon EDMD request. 3 more subsequent shocks given within the 3 or 4 minutes until rhythm became regular but no p-waves observed. stat EKG performed showing accelerated jxnl rhythm. HR holding firm at around 75-80 bpm. Pt tolerated well. VSS, BP excellent at 116/70. Pt had excellent BP the entire time he was in the ED.
[2022-01-01] MEDS ORDERED: APIX5TAB4 PO (06:05)
[2022-01-01] MEDS ORDERED: DILT240C88 PO (06:05)
--- NOTE | 2022-01-01 07:34 | NUR ---
thorough report just given to CCU RN Liz using SBAR method. Liz gave green light to tranportg pt. REGLA said that she will push pt in a little bit, to give CCU nurses time to assess pts and pass meds.
--- NOTE | 2022-01-01 07:55 | NUR ---
JOSEPHN is preparing pt to be transfered to CCU 2. Pt stable with excellent VS.
[2022-01-01 08:20] VITALS: BP 123/74
--- NOTE | 2022-01-01 08:20 | NUR ---
Patient admitted to unit with diagnosis of chest pain under Dr. Bautista. Patient does not verbalize any responses to questions. However, patient opens eyes spontaneously. No shortness of breath at the moment. Patient on room air saturating at 95%. Hemodynamically stable, heart rate 72, blood pressure 123/74 with sinus rhythm on the teletypesetter monitor. Normal pulses on bilateral upper extremities upon palpation; weak pulses on bilateral lower extremities. Bump/scar on right lower extremity from tibia surgery. Amputated right pointer finger. Femoral central line TLC flushing on two lumens. One lumen clogged. Will continue with plan of care.
[2022-01-01] MEDS ORDERED: MAGNESIUM HYDROXIDE 30 ML LIQUID UDC PO PRN (08:30)
[2022-01-01] MEDS ORDERED: REMEDY ESSENTIAL ZINC PASTE 113 GM TP PRN (08:30)
[2022-01-01] MEDS ORDERED: ALBUTEROL SULFATE 8 GM HFA.AER.AD INH SCH (08:30)
--- NOTE | 2022-01-01 08:30 | NUR ---
Dr. Bautista at bedside [facility] patient.
[2022-01-01 09:00] VITALS: BP 124/73
[2022-01-01] MEDS: DILTIAZEM HCL CD 240 MG CAP.SR.24H PO SCH ×2 (09:00→10:19)
[2022-01-01] MEDS ORDERED: DILTIAZEM HCL CD 120 MG CAP.SR.24H PO SCH (09:00)
[2022-01-01] MEDS ORDERED: ALBUTEROL SULFATE 2.5 MG/3 ML NEBU NEB PRN (09:15)
[2022-01-01] MEDS: METOPROLOL TARTRATE 25 MG TABLET PO SCH ×4 (09:45→17:00)
[2022-01-01 10:00] VITALS: BP 131/59
--- NOTE | 2022-01-01 10:17 | NUR ---
pt. with c/of chest pain stat ekg notified to attending, pt. placed on NC saturation on room air was 90%. Attending called and notified. As orders we should continue with care plan and down-grade pt. to telemetry as previously discussed.
--- NOTE | 2022-01-01 10:25 | NUR ---
Bedside swallow eval; patient presents with difficulty swallowing. Unable to administer PO meds. Addendum: 01/01/22 at 1031 by VLAD MCKENNA RN Water dripping from side of mouth. Visually checked throat to assess whether there is something preventing him from swallowing; did not visualize anything physically.
[2022-01-01 12:00] VITALS: BP 164/121
--- NOTE | 2022-01-01 12:25 | NUR ---
pt received from ccu via wheel chair to room 304 in stable condition,vs are stable call light with in reach
[2022-01-01 15:50] VITALS: BP 113/52
--- NOTE | 2022-01-01 19:52 | NUR ---
Received patient lying in bed. AAOX4, appears disheveled and unkempt. Patient reported pain on the lower extremities, and requested for morphine. However, patient shows no signs and symptoms of pain. Repositioned patient and advised patient to resort to non-pharmacological method instead. Sinus rhythm on telemonitor. On 1L via NC saturating at 96%. Safety precautions initiated. Will continue to monitor.
[2022-01-01 20:00] VITALS: BP 137/63
[2022-01-01] MEDS: ACETAMINOPHEN 325 MG TABLET PO PRN (20:27)
--- NOTE | 2022-01-01 23:00 | NUR ---
Received lab results from laboratory. 3rd test of troponin came in showing result of 0.138, Dr. Bautista notified accordingly. Doctor advised to continue current cardio management and repeat troponin in the morning. Will continue to monitor patient as ordered.
[2022-01-02] VITALS: BP 128/65
[2022-01-02 04:00] VITALS: BP 107/71
--- NOTE | 2022-01-02 05:40 | NUR ---
Patient slept through the night, with few complaints of pain. Advised patient to do deep breathing and relaxation techniques. S.R with PACs on telemonitor. On 2L O2, saturating at 98% for comfort, since patient was panting after taking a shower. IV access lumens all intact and patent. All other needs attended to and met. Safety precautions maintained. Will endorse to day shift.
[2022-01-02 06:25] LABS: HEMATOCRIT 40.3 % (36.7-47.1); MEAN CORPUSCULAR HEMOGLOBIN 30.7 uug (23.8-33.4); PLATELET COUNT (AUTO) 216 K/uL (152-348)
[2022-01-02 06:44] LABS: CARBON DIOXIDE 32 mmol/L (21-32); CHLORIDE 101 mmol/L (98-107); CHOLESTEROL 140 mg/dL (<200); CREATININE 1.5 mg/dL (0.6-1.3); GLUCOSE 97 mg/dL (74-106); HDL CHOLESTEROL 52 mg/dL (40-60); PHOSPHOROUS 3.8 mg/dL (2.5-4.9); POTASSIUM 4.5 mmol/L (3.5-5.1); TRIGLYCERIDES 45 MG/DL (30-150); UREA NITROGEN, BLOOD 33 mg/dL (7-18)
--- NOTE | 2022-01-02 07:30 | NUR ---
Sleeping, comfortable. O2 at 2L/NC. Tele SR 82. Seen by Dr. Stanford with orders.
[2022-01-02] MEDS ORDERED: FUROSEMIDE 40 MG/4 ML VIAL IV ONE (07:45)
[2022-01-02] MEDS ORDERED: DILTIAZEM HCL CD 240 MG CAP.SR.24H PO SCH (09:00)
[2022-01-02] MEDS: DILTIAZEM HCL CD 120 MG CAP.SR.24H PO SCH (09:07)
[2022-01-02] MEDS: ACETAMINOPHEN 325 MG TABLET PO PRN ×2 (11:11→21:12)
--- NOTE | 2022-01-02 11:35 | NUR ---
Resting, O2 at 1L/NC. Endorsed for further care
[2022-01-02 11:45] VITALS: BP 117/76
--- NOTE | 2022-01-02 15:33 | NUR ---
Clinical Social Work Note: SW visited pt twice to complete an assessment. Pt was found sleeping both times. SW attempted to wake pt with the help of pt's nurse, though pt remained asleep. As a result, SW was unable to complete an assessment. SW will attempt to see pt again tomorrow on 01/03/22 to provide pt with a homeless packet waiver and additional resources for discharge such as: SW provided patient with a copy of the [facility] homeless directory which provides information on locations for hot meals, sack lunches, food pantries, and showers. WHIT provided a list of mental health clinics: [facility] [address] [place] [address], ; [facility] [address] [place] [address], ; [facility] [address] [place] [address], ; a list of medical clinics: [facility] [address] [facility] [facility] [address], [place]. [place], ; [facility] [address] [facility], [address] [address]; [facility] [address] [place] [address], ; and a list of substance abuse programs: [facility] Substance Abuse Self-helpline ; [facility] ; [facility] ; [facility] ; [facility] ; [facility] [phone]; [facility] [phone]. Patient signed the homeless waiver form and a copy was placed in the chart.
[2022-01-02 16:00] VITALS: BP 93/51
--- NOTE | 2022-01-02 21:40 | NUR ---
PATIENT ALERT ORIENTED, ON OXYGEN 2 LPM SAT 99% PATIENT TELI MONITOR A FIB, DR MÁRQUEZ WAS AWARE OF PATIENT EPISODE OF CP. PATIENT GIVEN TYLENOL 650MG PO FOR PAIN AND COMFORT, PATIENT REFUSED TELE MONITOR, GET AGITATED GIVEN FOOD AND DECAF COFFEE FOR COMFORT, CONT TO MONITOR.
--- NOTE | 2022-01-03 00:40 | NUR ---
PATIENT HAS COMPLAINING OF CHEST PAIN, NOTIFY EVA ARAGON MERCHANDISE SUPERVISOR WITH ORDER OF MORPHINE 2MG IV PRN FOR PAIN, CONT TO MONITOR, BP 124/54,
[2022-01-03] MEDS: MORPHINE SULFATE 2 MG/1 ML DISP.SYRIN IV PRN ×2 (00:46→09:31)
--- NOTE | 2022-01-03 00:46 | NUR ---
PATIENT WAS PUT ON BACK TELE MONITOR SINUS RHYTHM AT THIS TIME, PATIENT PAIN IS SUBSIDED ACCORDING TO PATIENT, PATIENT WENT BACK TO SLEEP, CONT TO MONITOR.
--- NOTE | 2022-01-03 00:57 | NUR ---
PATIENT STATE THAT HE HAS LESSER CHEST PAIN AFTER THE MORPHINE, ABLE TO PUT TELE BOX, BP 129/54 HR 85 SINUS RHYTHM WITH PAC. CONT TO MONITOR.
--- NOTE | 2022-01-03 02:35 | NUR ---
PATIENT AWAKE REFUSED TELE BOX MONITOR AGAIN, PATIENT REQUEST CRACKERS AND JUICE, PATIENT RELAX NOT THRASHING OR AGITATED, PATIENT HAS EPISODE OF UNCOOPERATIVE MOOD, AND COOPERATIVE MOOD, WILL CONT TO OFFER.
[2022-01-03 06:46] LABS: HEMATOCRIT 39.6 % (36.7-47.1); MEAN CORPUSCULAR HEMOGLOBIN 31.1 uug (23.8-33.4); MEAN CORPUSCULAR VOLUME 93.6 fL (73.0-96.2); PLATELET COUNT (AUTO) 225 K/uL (152-348)
--- NOTE | 2022-01-03 06:46 | NUR ---
PATIENT CONTINUE TO REFUSED TELE BOX, GETS AGITATED WHEN ASKED AND ENCOURAGE TO KEPT IT ON, NO SOB , WATCHING TV, EATING SNACKS, CONT TO MONITOR.
[2022-01-03 07:12] LABS: CREATININE 1.3 mg/dL (0.6-1.3); MAGNESIUM 1.7 mg/dL (1.8-2.4); PHOSPHOROUS 3.2 mg/dL (2.5-4.9); POTASSIUM 3.8 mmol/L (3.5-5.1)
[2022-01-03] MEDS ORDERED: MUPIROCIN 2% OINT 22 GM TUBE NS SCH (09:00)
[2022-01-03] MEDS: DILTIAZEM HCL CD 120 MG CAP.SR.24H PO SCH (09:22)
[2022-01-03] MEDS: MAGNESIUM SULFATE/D5W 100 ML IV SCH ×2 (09:22→10:39)
[2022-01-03 12:00] VITALS: BP 145/62
--- NOTE | 2022-01-03 12:41 | NUR ---
Patient discharged form unit at 1237. IV site removed. ID badge removed. Discharge education provided.
== END 2022-01-03 12:37 | disposition home or self-care (01) | DRG 201 ==
LOC: ER 03:43 → CCU 07:15 → TELE3 12:36 → MEDSURG3 01-03 09:11
PROVIDERS: ADMIT Family Medicine; ATTEND Nurse Practitioner Acute Care
PROC: 06HM33Z Insertion of Infusion Device into Right Femoral Vein, Percutaneous Approach (ICD-10-PCS; principal; 2022-01-01)
PROC: 5A2204Z Restoration of Cardiac Rhythm, Single (ICD-10-PCS; principal; 2022-01-01)
DX: I48.0 Paroxysmal atrial fibrillation (principal); N17.0 Acute kidney failure with tubular necrosis; I21.A1 Myocardial infarction type 2; I50.23 Acute on chronic systolic (congestive) heart failure; I42.8 Other cardiomyopathies; K92.0 Hematemesis; I13.0 Hypertensive heart and chronic kidney disease with heart failure and stage 1 through stage 4 chronic kidney disease, or unspecified chronic kidney disease; N18.9 Chronic kidney disease, unspecified; R74.01 Elevation of levels of liver transaminase levels; F17.210 Nicotine dependence, cigarettes, uncomplicated; Z59.00 Homelessness unspecified; Z79.01 Long term (current) use of anticoagulants; R73.9 Hyperglycemia, unspecified; J44.9 Chronic obstructive pulmonary disease, unspecified; F15.10 Other stimulant abuse, uncomplicated; K29.70 Gastritis, unspecified, without bleeding; I20.9 Angina pectoris, unspecified
CPT/HCPCS: 36415; 70030-TC; 71045; 83735; 84100; 85025; 93005; A4663; G0378; G0480; J1650; J1940; J2270; J3010; J3475; J3490; J7040

== ENCOUNTER 2022-01-01 05:07 | Emergency (ER) | payer MEDICARE, OTHER ==
[2022-01-01] MEDS ORDERED: DILT240C88 PO (06:05)
[2022-01-01] MEDS ORDERED: APIX5TAB4 PO (06:05)
[2022-01-01 08:20] VITALS: BP 123/74
== END 2022-01-01 06:04 | disposition home or self-care (01) ==
LOC: ER 05:10
DX: Z53.21 Procedure and treatment not carried out due to patient leaving prior to being seen by health care provider (principal)

== ENCOUNTER 2022-01-06 12:29 | Inpatient (IN) | payer OTHER, MEDICARE ==
[~2022-01-06] VITALS: Ht 175.3 cm; Wt 65.8 kg
[2022-01-06] VITALS (8 sets, daily range): BP systolic 105–138; BP diastolic 57–80
[~2022-01-06 12:29] MED LIST changes: +APIX5TAB4 PO
[2022-01-06] MEDS ORDERED: IV NORMAL SALINE 500 ML BAG IV ONE (13:00)
[2022-01-06] MEDS ORDERED: DILTIAZEM HCL 25 MG IV IV ONE ×2 (13:00→13:30)
[2022-01-06] MEDS ORDERED: ASPIRIN 81 MG TAB.CHEW PO ONE (13:00)
[2022-01-06] MEDS ORDERED: NITROGLYCERIN 0.4 MG/TAB BOTTLE SL ONE ×2 (13:00→13:06)
[2022-01-06 13:03] LABS: HEMATOCRIT 41.6 % (36.7-47.1); MEAN CORPUSCULAR HEMOGLOBIN 31.6 uug (23.8-33.4); MEAN CORPUSCULAR VOLUME 94.1 fL (73.0-96.2); PLATELET COUNT (AUTO) 283 K/uL (152-348)
[2022-01-06] MEDS ORDERED: DILTIAZEM HCL 25 MG IV ONE (13:05)
[2022-01-06] MEDS ORDERED: ASPIRIN 81 MG TAB.CHEW ONE (13:06)
--- NOTE | 2022-01-06 13:08 | NUR ---
Mitchell chow in [facility] - 01/06/22 at 1319 by PAVEL Admitting/ER registration staff Neda notified re: plan to admit
[2022-01-06 13:09] LABS: CARBON DIOXIDE 28 mmol/L (21-32); CHLORIDE 106 mmol/L (98-107); CREATININE 1.6 mg/dL (0.6-1.3); GLUCOSE 129 mg/dL (74-106); POTASSIUM 5.1 mmol/L (3.5-5.1); UREA NITROGEN, BLOOD 31 mg/dL (7-18)
--- NOTE | 2022-01-06 13:10 | NUR ---
PT IS IN ROOM #2A. DR OLIVERA EVALUATED THE PT.
--- NOTE | 2022-01-06 13:11 | NUR ---
Admitting/ER registration staff Neda notified re: plan to admit per Dr Gonzales.
[2022-01-06 13:25] LABS: ALANINE AMINOTRANSFERASE 157 U/L (16-63); ALKALINE PHOSPHATASE 108 U/L (50-136); ASPARTATE AMINOTRANSFERASE 74 U/L (15-37); BILIRUBIN,TOTAL 0.7 mg/dL (0.2-1.0); TOTAL PROTEIN, SERUM 8.5 g/dL (6.4-8.2)
[2022-01-06] MEDS: MAGNESIUM SULFATE/D5W 100 ML IV SCH ×2 (13:34→14:37)
[2022-01-06] MEDS ORDERED: MAGNESIUM SULFATE/D5W 200 ML ONE (13:35)
[2022-01-06] MEDS ORDERED: CEFTRIAXONE 1 G in IV DEXTROSE 5% 50 ML IV ONE (14:00)
[2022-01-06] MEDS ORDERED: AZITHROMYCIN IV 500 MG in IV DEXTROSE 5% 250 ML IV ONE (14:00)
[2022-01-06] MEDS ORDERED: AZITHROMYCIN 500MG/ D5W 250ML IVPB **ER PYXIS ONLY IV ONE (14:23)
[2022-01-06] MEDS ORDERED: CEFTRIAXONE /D5W 50ML IVPB **ER PYXIS IV ONE (14:23)
--- NOTE | 2022-01-06 15:36 | NUR ---
REPORT WAS GIVEN TO MASH TUB COOKER OPERATOR. PT WAS TRNSFERED TO CCU ROOM #4.
--- NOTE | 2022-01-06 16:01 | NUR ---
Received pt. from Clara Rodarte. Patient AAOX4. on A-fib uncontrolled in the low 120's. On nasal canula 2L with saturation of 100%. Patient able to assist in moving from gurney to bed. Attending notified of pt's arrival to the unit with reports of receiving vital signs. No skin breakdown.
[2022-01-06] MEDS ORDERED: TEMAZEPAM 15 MG CAPSULE PO PRN (16:30)
[2022-01-06] MEDS ORDERED: ACETAMINOPHEN 325 MG TABLET PO PRN (16:30)
[2022-01-06] MEDS ORDERED: ONDANSETRON 4 MG/2 ML VIAL IV PRN (16:30)
[2022-01-06] MEDS ORDERED: AMIODARONE HCL IV 150 MG in IV DEXTROSE 5% 100 ML IV ONE (17:30)
[2022-01-06] MEDS: AMIODARONE HCL IV 450 MG in IV DEXTROSE 5% 250 ML IV PRN (17:43)
[2022-01-06] MEDS: HYDROCODONE/APAP 5-325MG TABLET PO PRN (17:51)
[2022-01-06] MEDS ORDERED: levoFLOXacin 500 MG/D5W 500 MG in PREMIXED 1 EACH IV ONE (20:00)
[2022-01-06] MEDS: METOCLOPRAMIDE HCL 10 MG/2 ML VIAL IV PRN ×2 (20:16→20:20)
[2022-01-06] MEDS ORDERED: levoFLOXacin 500 MG/D5W 100 ML ONE (20:21)
[2022-01-06] MEDS: MORPHINE SULFATE 2 MG/1 ML DISP.SYRIN IV PRN (20:21)
[2022-01-06] MEDS ORDERED: MAG HYDROX/AL HYDROX/SIMETH 30 ML LIQUID UDC PO PRN (20:45)
[2022-01-06] MEDS: APIXABAN 5 MG TABLET PO SCH (21:33)
[2022-01-06] MEDS: DOCUSATE SODIUM 100 MG CAPSULE PO SCH (21:33)
[2022-01-07] VITALS (26 sets, daily range): BP systolic 104–166; BP diastolic 41–90
[2022-01-07] MEDS: AMIODARONE HCL IV 450 MG in IV DEXTROSE 5% 250 ML IV PRN (00:31)
[2022-01-07] MEDS: MORPHINE SULFATE 2 MG/1 ML DISP.SYRIN IV PRN ×4 (00:41→20:31)
[2022-01-07] MEDS: IV NORMAL SALINE 250 ML IV PRN (02:30)
--- NOTE | 2022-01-07 05:00 | NUR ---
Con't Amiodarone gtt. Con't A-fib / monitor. Refused AM cares; wants to sleep.
[2022-01-07 05:15] LABS: HEMATOCRIT 36.6 % (36.7-47.1); MEAN CORPUSCULAR HEMOGLOBIN 31.1 uug (23.8-33.4); MEAN CORPUSCULAR VOLUME 93.9 fL (73.0-96.2); PLATELET COUNT (AUTO) 211 K/uL (152-348)
[2022-01-07 05:45] LABS: ALANINE AMINOTRANSFERASE 118 U/L (16-63); ALKALINE PHOSPHATASE 88 U/L (50-136); ASPARTATE AMINOTRANSFERASE 55 U/L (15-37); BILIRUBIN,TOTAL 0.6 mg/dL (0.2-1.0); CARBON DIOXIDE 27 mmol/L (21-32); CHLORIDE 104 mmol/L (98-107); CHOLESTEROL 139 mg/dL (<200); CREATININE 1.3 mg/dL (0.6-1.3); GLUCOSE 163 mg/dL (74-106); HDL CHOLESTEROL 55 mg/dL (40-60); MAGNESIUM 2.3 mg/dL (1.8-2.4); PHOSPHOROUS 3.5 mg/dL (2.5-4.9); POTASSIUM 4.5 mmol/L (3.5-5.1); TOTAL PROTEIN, SERUM 6.8 g/dL (6.4-8.2); TRIGLYCERIDES 41 MG/DL (30-150); UREA NITROGEN, BLOOD 29 mg/dL (7-18)
[2022-01-07] MEDS: PANTOPRAZOLE SODIUM 40 MG TABLET.DR PO SCH (07:17)
--- NOTE | 2022-01-07 07:20 | NUR ---
Received pt. sleeping intermittently, when awake oriented X4. Hemodynamically on controlled A-fib rate in the 80-90's SBP within desired limits on amiodarone per protocol. On NC 2liters no c/of chest pain or sob at this moment, saturation of 97-99%. IV line patent. will continue to monitor.
[2022-01-07] MEDS: NICOTINE 21 MG/24HR PATCH TD SCH (08:19)
[2022-01-07] MEDS: APIXABAN 5 MG TABLET PO SCH (08:23)
--- NOTE | 2022-01-07 11:08 | NUR ---
Pt. with severe c/of chest pain. At this time placed back on oxygen, norco given troponin stat, and MD called and notified. Addendum: 01/07/22 at 1144 by RAFAELA TAM RN Patient noted to be in labor breathing with use of accessory muscles., and unable to lie to be in the sitting position only at 30degree angle.
[2022-01-07] MEDS: HYDROCODONE/APAP 5-325MG TABLET PO PRN (11:25)
[2022-01-07] MEDS: NITROGLYCERIN 0.4 MG/TAB BOTTLE SL PRN ×2 (11:25→11:31)
--- NOTE | 2022-01-07 11:44 | NUR ---
Post 2 doses of sublingual nitroglycerin morphine, and norco pt. stating that chest pain is getting much better. Hr of 76, sbp 139/66, saturation of 10% on 2LNC.
--- NOTE | 2022-01-07 11:45 | NUR ---
A call from attending at orders to dcd amiodarone drip and start pt. on amiodarone po 200mg Q12 first dose now.
[2022-01-07] MEDS: AMIODARONE HCL 200 MG TABLET PO SCH ×2 (12:09→20:32)
--- NOTE | 2022-01-07 13:00 | NUR ---
Attending physician, Elio Ac in the unit to see and examine pt. report given with orders to continue with care plan received.
[2022-01-07] MEDS: LORAZEPAM 2 MG/1 ML VIAL IV PRN (13:07)
--- NOTE | 2022-01-07 13:30 | NUR ---
Patient seen by sheet metal welder Dr. Stanford. Report given see order hx.
--- NOTE | 2022-01-07 14:13 | NUR ---
Patient taken down to CTA vitals stable no c/of pain.
[2022-01-07] MEDS ORDERED: SWABABLE VALVE TRANSFER SET EA MC ONE (14:20)
[2022-01-07] MEDS ORDERED: IOHEXOL 350 100 ML INFUS..BTL ONE (14:20)
[2022-01-07] MEDS ORDERED: IV NORMAL SALINE 250 ML IV ONE (14:20)
--- NOTE | 2022-01-07 14:48 | NUR ---
patient back from CTA procedure pt. tolerated well no distress or c/of CP. sbp within normal.
--- NOTE | 2022-01-07 18:39 | NUR ---
Left pt. in bed resting dinner at bedside. Hemodynamically stable controlled-afib- rate in the 80's. No c/of chest pain, or sob. Blood pressure within desired limits. Neuro-dobbs, oriented X4 and able to verbalized needs. IV line patent and HL. Over all skin c.d.i. patient moving independently. Will endorse care for continuity of care.
[2022-01-07] MEDS: DOCUSATE SODIUM 100 MG CAPSULE PO SCH (20:32)
[2022-01-07] MEDS ORDERED: levoFLOXacin 250MG /D5W 50 ML IV SCH (21:00)
[2022-01-08] VITALS (22 sets, daily range): BP systolic 98–153; BP diastolic 40–125
[2022-01-08] MEDS: MORPHINE SULFATE 2 MG/1 ML DISP.SYRIN IV PRN ×4 (00:40→20:28)
[2022-01-08] MEDS: LORAZEPAM 2 MG/1 ML VIAL IV PRN ×3 (02:30→22:03)
[2022-01-08 05:23] LABS: HEMATOCRIT 35.8 % (36.7-47.1); MEAN CORPUSCULAR VOLUME 94.2 fL (73.0-96.2); PLATELET COUNT (AUTO) 211 K/uL (152-348)
[2022-01-08 05:41] LABS: BILIRUBIN,TOTAL 0.6 mg/dL (0.2-1.0); CREATININE 1.3 mg/dL (0.6-1.3); MAGNESIUM 1.9 mg/dL (1.8-2.4); PHOSPHOROUS 3.5 mg/dL (2.5-4.9); POTASSIUM 4.5 mmol/L (3.5-5.1); TOTAL PROTEIN, SERUM 6.7 g/dL (6.4-8.2)
--- NOTE | 2022-01-08 07:00 | NUR ---
Received pt. sleeping, Hemodynamically on controlled A-fib rate in the 70's 80's Afebrile. sbp within desired limits. Neuro-dobbs AAOx4. Iv line patent. On NC 2Liters with saturation of 93-96%. No sob or chest pain reported at this time. Will continue with care plan.
--- NOTE | 2022-01-08 07:50 | NUR ---
Patient seen by running rigger Dr. Stanford, see order hx.
[2022-01-08] MEDS: AMIODARONE HCL 200 MG TABLET PO SCH ×2 (08:22→20:28)
[2022-01-08] MEDS: PANTOPRAZOLE SODIUM 40 MG TABLET.DR PO SCH (08:23)
[2022-01-08] MEDS: NICOTINE 21 MG/24HR PATCH TD SCH (08:23)
[2022-01-08] MEDS ORDERED: FUROSEMIDE 40 MG/4 ML VIAL IV ONE (08:30)
[2022-01-08] MEDS: NITROGLYCERIN 0.4 MG/TAB BOTTLE SL PRN ×3 (10:42→22:02)
--- NOTE | 2022-01-08 10:51 | NUR ---
PT. with severe c/of chest pain 08/20 sharp no sob but tachypnea in the low to mid 30's. saturation of 96%. nitroglycerin administered as ordered. Addendum: 01/08/22 at 1528 by RAFAELA TAM RN Ativan given as post nitroglycerin.
--- NOTE | 2022-01-08 11:30 | NUR ---
CP well controlled, patient resting comfortably. Vitals stable.
[2022-01-08] MEDS: IV NORMAL SALINE 250 ML IV PRN (12:06)
[2022-01-08] MEDS ORDERED: levoFLOXacin 750MG/D5W 150 ML IV SCH (13:00)
--- NOTE | 2022-01-08 15:02 | NUR ---
Clinical Social Work Note Update: SW visited pt three times to complete an assessment. Pt was found sleeping each time. SW attempted to wake pt with the help of pt's nurse, though pt remained asleep. As a result, SW was unable to complete an assessment. SW will attempt to see pt again tomorrow on 01/08/22 to provide pt with a homeless packet waiver and additional resources for discharge such as: [facility] homeless directory which provides information on locations for hot meals, sack lunches, food pantries, and showers. SW provided a list of mental health clinics: [facility] [address] [place] [address], ; [facility] [address] [place] [address], ; [facility] [address] [place] [address], ; a list of medical clinics: [facility] [address] [facility] [address], [place]. [place], ; [facility] [address] [facility], [facility] [address] [place] [address]; [email or web address] [address] [place] [address], ; and a list of substance abuse programs: [facility] Substance Abuse Self-helpline ; [facility] ; [facility] ; [facility] ; [facility] ; [facility] [phone]; [facility] [phone]. Patient signed the homeless waiver form and a copy was placed in the chart.
--- NOTE | 2022-01-08 18:42 | NUR ---
Patient seen by attending Dr. Moore report given orders received. See order hx.
[2022-01-08] MEDS ORDERED: ZOLPIDEM 5 MG TABLET PO PRN (18:45)
--- NOTE | 2022-01-08 18:52 | NUR ---
Left pt. in bed resting on controlled A-fib/SR on/off sbp within normal. No chest pain or sob at this moment. tolerating diet well with no n/v/d. AAOX3-4 cooperative with care and medication schedule. On NC 2liters saturation of 97-100%. Iv line patent. Will continue with care plan.
[2022-01-08] MEDS ORDERED: NORMAL SALINE FLUSH 10 ML DISP.SYRIN IV PRN (19:15)
--- NOTE | 2022-01-08 19:30 | NUR ---
Report received. Patient admitted 01/06/22 DX: chest pain, Afib with RVR. LIBRA BOWLING noted. potline monitor: SR rate 60's-70's. Assessment completed. Addendum: 01/08/22 at 2231 by HARPREET VALERA RN Amended: Links added. Addendum: 01/08/22 at 2233 by HARPREET VALERA RN Amended: Links added.
[2022-01-08] MEDS: NORMAL SALINE FLUSH 10 ML DISP.SYRIN IV SCH ×2 (19:31→22:03)
--- NOTE | 2022-01-08 20:28 | NUR ---
C/o pain and discomfort to R chest area. No EKG changes; skin warm and dry. Medicated with Morphine IV. Addendum: 01/08/22 at 2233 by HARPREET VALERA RN Amended: Links added.
[2022-01-08] MEDS: DOCUSATE SODIUM 100 MG CAPSULE PO SCH (20:37)
--- NOTE | 2022-01-08 20:45 | NUR ---
Patient mildly agitated, stood up and wants to go to the BR. Advised appropriately. Informed that there's no BR in the CCU and he needs constant monitoring. "I am not using that bedpan!" BSC provided. Patient had a moderate soft brown stools. PM care done. Patient cooperative thereafter. Plan of care discussed including possible his transfer out of CCU.
--- NOTE | 2022-01-08 21:30 | NUR ---
Sleeping after Morphine IV and bath. VSS. Addendum: 01/08/22 at 2241 by HARPREET VALERA RN Amended: Links added. Addendum: 01/08/22 at 2243 by HARPREET VALERA RN Amended: Links added.
--- NOTE | 2022-01-08 22:02 | NUR ---
Patient called. C/o chest discomfort, anxious. VS remain stable. Medicated with NTG SL and Ativan IV. Addendum: 01/08/22 at 2243 by HARPREET VALERA RN Amended: Links added.
--- NOTE | 2022-01-08 23:40 | NUR ---
Patient woke up asking for snacks. Milk and crackers given, ate well. Asking for sleeping pill. Restoril given.
[2022-01-09] VITALS (14 sets, daily range): BP systolic 102–145; BP diastolic 44–97
[2022-01-09] MEDS: MORPHINE SULFATE 2 MG/1 ML DISP.SYRIN IV PRN ×4 (03:53→18:56)
[2022-01-09 05:05] LABS: *AMPHETAMINE, URINE POSITIVE (NEGATIVE); *CANNABINOID, URINE NEGATIVE (NEGATIVE); *COCCAINE, URINE NEGATIVE (NEGATIVE); *OPIATE, URINE POSITIVE (NEGATIVE); *PHENCYCLIDINE SCREEN,URINE NEGATIVE (NEGATIVE)
[2022-01-09] MEDS: NORMAL SALINE FLUSH 10 ML DISP.SYRIN IV SCH ×3 (05:12→21:01)
[2022-01-09] MEDS: PANTOPRAZOLE SODIUM 40 MG TABLET.DR PO SCH (06:23)
--- NOTE | 2022-01-09 06:40 | NUR ---
C/o discomfort to R chest area. No EKG changes. VS stable. Requesting for pain medication. Medicated with Clio. Asking for food every time patient is awake. Linens changed. Patient cooperative.
[2022-01-09] MEDS: HYDROCODONE/APAP 5-325MG TABLET PO PRN ×2 (06:41→11:08)
--- NOTE | 2022-01-09 08:00 | NUR ---
Received patient resting in bed. A/O x 3, in no acute distress.Reports pain in the chest but denies SOB. PICC line in the right upper arm, patent and intact. TELE Junctional at 81. On O2 2L NC. Urinal within reach. Safety initiated. Call light within reach. Bed in low and locked position. Will closely monitor.
[2022-01-09] MEDS: AMIODARONE HCL 200 MG TABLET PO SCH (08:08)
[2022-01-09] MEDS: NICOTINE 21 MG/24HR PATCH TD SCH (08:08)
--- NOTE | 2022-01-09 08:20 | NUR ---
Morphine 2 mg given for Chest Pain. Will continue to monitor.
--- NOTE | 2022-01-09 11:24 | NUR ---
Attending physician Maria Teresa Bautista in the unit to see and examine pt. report given and orders to down-grade pt. to telemetry received, and implemented.
[2022-01-09] MEDS ORDERED: METOCLOPRAMIDE HCL 10 MG TABLET PO PRN (12:30)
[2022-01-09] MEDS: CEFEPIME HCL 2 G in IV DEXTROSE 5% 100 ML IV SCH (12:50)
[2022-01-09] MEDS: ENSURE ENLIVE (VAN) 240 ML LIQUID PO SCH (17:32)
--- NOTE | 2022-01-09 20:50 | NUR ---
Patient is anxious, stating "I can't breath." NC @ 2LPM, O2 sat 97%. VSS. No EKG changes. Ativan IV medication given as ordered. Will continue to monitor closely.
[2022-01-09] MEDS: LORAZEPAM 2 MG/1 ML VIAL IV PRN (20:55)
[2022-01-09] MEDS: DOCUSATE SODIUM 100 MG CAPSULE PO SCH (20:55)
--- NOTE | 2022-01-09 23:00 | NUR ---
Transported patient to Room 305 via wheelchair, without any incident. HAL. LIBRA. Report given to PATRIC Herrera.
--- NOTE | 2022-01-09 23:29 | NUR ---
Received patient from CCU unit, alert oriented, no sob no chest pain. tele monitor A fib. cont to monitor.
[2022-01-10 04:00] VITALS: BP 137/72
[2022-01-10] MEDS: NORMAL SALINE FLUSH 10 ML DISP.SYRIN IV SCH ×3 (06:17→22:25)
[2022-01-10] MEDS: PANTOPRAZOLE SODIUM 40 MG TABLET.DR PO SCH (06:17)
[2022-01-10 06:39] LABS: HEMATOCRIT 34.6 % (36.7-47.1); MEAN CORPUSCULAR HEMOGLOBIN 31.7 uug (23.8-33.4); MEAN CORPUSCULAR VOLUME 93.2 fL (73.0-96.2); PLATELET COUNT (AUTO) 192 K/uL (152-348)
[2022-01-10 06:46] LABS: CREATININE 1.2 mg/dL (0.6-1.3); POTASSIUM 4.4 mmol/L (3.5-5.1)
[2022-01-10] MEDS: NICOTINE 21 MG/24HR PATCH TD SCH (09:11)
[2022-01-10] MEDS: ENSURE ENLIVE (VAN) 240 ML LIQUID PO SCH ×2 (09:12→18:05)
[2022-01-10] MEDS: MORPHINE SULFATE 2 MG/1 ML DISP.SYRIN IV PRN ×2 (11:47→22:23)
[2022-01-10 12:00] VITALS: BP 123/60
[2022-01-10] MEDS: CEFEPIME HCL 2 G in IV DEXTROSE 5% 100 ML IV SCH (12:54)
--- NOTE | 2022-01-10 14:27 | NUR ---
Clinical SW Note: SW was able to provide a consult due to pt awake and alert. Pt appeared alert and oriented x2 (name and place). Pt stated he will be returning to where he was staying at the corner of [facility]. Pt answered SW by stating he does not have family contact and he will be discharging alone. Pt was aware and agreeable with the discharge plan. SW was not able to ask further questions as pt appeared to be falling asleep. SW stated she will be leaving a list of homeless directory resources for pt to take with him. SW provided patient with a copy of the [facility] homeless directory which provides information on locations for hot meals, sack lunches, food pantries, and showers. SW provided a list of mental health clinics: [facility] [address] [place] [address], ; [facility] [address] [place] [address], ; [facility] [address] [place] [address], ; a list of medical clinics: [facility] [address], [place]. [place], ; [facility] [address] [facility] [facility] [address] [place] [address]; [facility] [address] [place] [address], ; and a list of substance abuse programs: [facility] Substance Abuse Self-helpline ; [facility] ; [facility] ; [facility] ; [facility] ; [facility] [phone]; [facility] [phone]. Patient signed the homeless waiver form and a copy was placed in the chart.
[2022-01-10 16:58] VITALS: BP 106/70
[2022-01-10] MEDS: LORAZEPAM 2 MG/1 ML VIAL IV PRN (17:59)
--- NOTE | 2022-01-10 19:40 | NUR ---
PATIENT IN BED ALERT ORIENTED, NO SOB NO CHEST PAIN. TELE MONITOR SINUS RHYTHM 68, CONT TO MONITOR, NO COMPLAIN OF PAIN AT THIS TIME.
[2022-01-10 20:00] VITALS: BP 150/53
[2022-01-10] MEDS: DOCUSATE SODIUM 100 MG CAPSULE PO SCH (21:56)
[2022-01-11] VITALS: BP 134/61
[2022-01-11] MEDS: LORAZEPAM 2 MG/1 ML VIAL IV PRN (01:33)
--- NOTE | 2022-01-11 01:37 | NUR ---
PATIENT HAS EPISODE OF AGITATION AND ANXIETY, KEEP ASKING FOR MORE FOOD MORE PAIN MEDS, PATIENT BEEN MEDICATED FOR PAIN, BUT REQUESTING MORE, GIVEN ATIVAN 0.5MG FOR ANXIETY, WILL CONT TO MONITOR.
[2022-01-11 04:00] VITALS: BP 133/67
[2022-01-11] MEDS: NORMAL SALINE FLUSH 10 ML DISP.SYRIN IV SCH ×3 (06:02→21:10)
[2022-01-11] MEDS: PANTOPRAZOLE SODIUM 40 MG TABLET.DR PO SCH (06:02)
[2022-01-11] MEDS: MORPHINE SULFATE 2 MG/1 ML DISP.SYRIN IV PRN ×3 (06:57→20:27)
[2022-01-11] MEDS: ENSURE ENLIVE (VAN) 240 ML LIQUID PO SCH ×2 (08:46→17:33)
[2022-01-11] MEDS: NICOTINE 21 MG/24HR PATCH TD SCH (08:46)
[2022-01-11 12:00] VITALS: BP 130/58
[2022-01-11] MEDS: CEFEPIME HCL 2 G in IV DEXTROSE 5% 100 ML IV SCH (12:53)
[2022-01-11] MEDS: HYDROCODONE/APAP 5-325MG TABLET PO PRN (14:43)
[2022-01-11 16:00] VITALS: BP 114/60
--- NOTE | 2022-01-11 19:13 | NUR ---
patient with x1 episode of bloody emesis, MD aware with order to monitor. After episode no further bloody emesis. patient with v/s wnl at this time, cleaned up, no coughing or any respiratory issue at this time. will monitor.
[2022-01-11 20:00] VITALS: BP 92/53
[2022-01-11] MEDS: DOCUSATE SODIUM 100 MG CAPSULE PO SCH (20:23)
[2022-01-12] VITALS: BP 100/61
[2022-01-12] MEDS: MORPHINE SULFATE 2 MG/1 ML DISP.SYRIN IV PRN (00:49)
[2022-01-12 04:00] VITALS: BP 104/66
[2022-01-12] MEDS: NORMAL SALINE FLUSH 10 ML DISP.SYRIN IV SCH (06:08)
[2022-01-12] MEDS: PANTOPRAZOLE SODIUM 40 MG TABLET.DR PO SCH (06:08)
--- NOTE | 2022-01-12 06:09 | NUR ---
Received pt awake on bed with no respiratory distress upon initial rounds, on O2 at 2lpm via NC saturating at 95%, pt sometimes remove NC. He is alert and oriented x4, able to make needs known. PICC line on DEEPA remains patent and intact, flushed with NS. No s/sx of infiltration on IV site. Medicated pain x2, noted effective. No episode of hematemesis noted. All needs attended. Call light placed within reach. Frequent visual checks done. Will endorse to next shift for continuity of care.
[2022-01-12 06:39] LABS: HEMATOCRIT 37.6 % (36.7-47.1); MEAN CORPUSCULAR HEMOGLOBIN 31.5 uug (23.8-33.4); MEAN CORPUSCULAR VOLUME 92.6 fL (73.0-96.2); PLATELET COUNT (AUTO) 211 K/uL (152-348)
[2022-01-12 06:57] LABS: CREATININE 1.1 mg/dL (0.6-1.3); POTASSIUM 4.5 mmol/L (3.5-5.1)
[2022-01-12 07:52] LABS: BAND % (MANUAL) 1 % (0-10); EOSINOPHILS % (MANUAL) 5 % (0-8); LYMPHOCYTES % (MANUAL) 26 % (20-40); MONOCYTES % (MANUAL) 15 % (2-10); NEUTROPHILS % (MANUAL) 53 % (42-75)
--- NOTE | 2022-01-12 09:10 | NUR ---
MEDICATED WITH MORPHINE 2MG ORDERED FOR PAIN. VSS
[2022-01-12] MEDS: NICOTINE 21 MG/24HR PATCH TD SCH (09:17)
[2022-01-12] MEDS: ENSURE ENLIVE (VAN) 240 ML LIQUID PO SCH (09:18)
--- NOTE | 2022-01-12 10:10 | NUR ---
MS 2MG EFFECTIVE. GIVEN FOR PAIN 06/20 NOW 2/ AFTER 1 HOUR MEDICATED. RESTING QUIETLY AROUSABLE EASILY
[2022-01-12 11:00] VITALS: BP 140/76
--- NOTE | 2022-01-12 11:57 | NUR ---
Clinical Social Work Note Patient is in bed but alert and watching TV on his cell phone. He is alert and oriented x3. Patient is refusing placement in a shelter facility. He is choosing to return to the streets and says " I want to return to [facility] ". Patient is abusing polysubstances ( mainly stimulants) on the street and is likely to continue with this dependence. He appears competent to make his decisions. Patient was given A TPA card to take the bus to [facility]. Patient was also given homeless resources and shelters but is currently declining senior care placement. He is agreeable with discharge to the streets and is resourceful. PATRIC Barbour advised to complete homeless checklist in [employer] [facility]. Mood is euthymic at discharge.
--- NOTE | 2022-01-12 14:39 | NUR ---
d/c. tap card given. prescriptions called in to pharmacy. d/c instructions given verbalized understanding.
== END 2022-01-12 15:20 | disposition home or self-care (01) | DRG 201 ==
LOC: ER 12:39 → CCU 15:13 → TELE3 01-09 23:00 → MEDSURG3 01-12 08:28
PROVIDERS: ADMIT Internal Medicine; ATTEND Family Medicine
PROC: B548ZZA Ultrasonography of Superior Vena Cava, Guidance (ICD-10-PCS; principal; 2022-01-07)
PROC: B546ZZA Ultrasonography of Right Subclavian Vein, Guidance (ICD-10-PCS; principal; 2022-01-07)
PROC: 02HV33Z Insertion of Infusion Device into Superior Vena Cava, Percutaneous Approach (ICD-10-PCS; principal; 2022-01-07)
PROC: 05H533Z Insertion of Infusion Device into Right Subclavian Vein, Percutaneous Approach (ICD-10-PCS; principal; 2022-01-07)
DX: I48.0 Paroxysmal atrial fibrillation (principal); N17.0 Acute kidney failure with tubular necrosis; K72.00 Acute and subacute hepatic failure without coma; I21.A1 Myocardial infarction type 2; I42.8 Other cardiomyopathies; J15.9 Unspecified bacterial pneumonia; I13.0 Hypertensive heart and chronic kidney disease with heart failure and stage 1 through stage 4 chronic kidney disease, or unspecified chronic kidney disease; I50.22 Chronic systolic (congestive) heart failure; I78.0 Hereditary hemorrhagic telangiectasia; R62.7 Adult failure to thrive; E86.1 Hypovolemia; E87.5 Hyperkalemia; E88.81 Metabolic syndrome and other insulin resistance; N18.9 Chronic kidney disease, unspecified; Z20.822 Contact with and (suspected) exposure to COVID-19; Z79.01 Long term (current) use of anticoagulants; F17.210 Nicotine dependence, cigarettes, uncomplicated; F15.10 Other stimulant abuse, uncomplicated; F10.10 Alcohol abuse, uncomplicated; J44.9 Chronic obstructive pulmonary disease, unspecified; Z59.02 Unsheltered homelessness; K27.9 Peptic ulcer, site unspecified, unspecified as acute or chronic, without hemorrhage or perforation; Z68.21 Body mass index [BMI] 21.0-21.9, adult; R74.01 Elevation of levels of liver transaminase levels; J44.0 Chronic obstructive pulmonary disease with (acute) lower respiratory infection; K29.70 Gastritis, unspecified, without bleeding; R73.9 Hyperglycemia, unspecified; K92.0 Hematemesis
CPT/HCPCS: 36415; 36569; 70030-TC; 71045; 71275; 83735; 84100; 84443; 84484; 85025; 85610; 85730; 87040; 93005; 97161; A4663; G0378; J0282; J0456; J0692; J0696; J1940; J1956; J2060; J2270; J2765; J3475; J3490; J7030; J7050; J7060; J8597; Q9967

== ENCOUNTER 2022-04-25 02:02 | Emergency (ER) | payer MEDICARE, OTHER ==
[~2022-04-25] VITALS: Ht 172.7 cm; Wt 65.8 kg
[~2022-04-25 02:02] MED LIST changes: -APIX5TAB4 PO
[2022-04-25] MEDS ORDERED: HYDROMORPHONE 1 MG/1 ML DISP.SYRIN IV ONE (02:30)
[2022-04-25] MEDS ORDERED: NITROGLYCERIN OINT 1 GM PACKET TP ONE ×2 (02:30→02:50)
[2022-04-25] MEDS ORDERED: PROCHLORPERAZINE EDISYLATE 10 MG/2 ML VIAL IV ONE (02:30)
--- NOTE | 2022-04-25 02:45 | NUR ---
Dr. Rahman at bedside for MSE.
[2022-04-25] MEDS ORDERED: PROCHLORPERAZINE EDISYLATE 10 MG/2 ML VIAL ONE (02:50)
[2022-04-25] MEDS ORDERED: HYDROMORPHONE 1 MG/1 ML DISP.SYRIN ONE (02:51)
[2022-04-25 03:05] LABS: HEMATOCRIT 37.8 % (36.7-47.1); MEAN CORPUSCULAR HEMOGLOBIN 29.4 uug (23.8-33.4); MEAN CORPUSCULAR VOLUME 87.5 fL (73.0-96.2); PLATELET COUNT (AUTO) 184 K/uL (152-348)
[2022-04-25 03:10] LABS: CARBON DIOXIDE 25 mmol/L (21-32); CHLORIDE 107 mmol/L (98-107); CREATININE 1.7 mg/dL (0.6-1.3); GLUCOSE 93 mg/dL (74-106); POTASSIUM 4.3 mmol/L (3.5-5.1); UREA NITROGEN, BLOOD 29 mg/dL (7-18)
[2022-04-25 03:23] LABS: ALANINE AMINOTRANSFERASE 65 U/L (16-63); ALKALINE PHOSPHATASE 101 U/L (50-136); ASPARTATE AMINOTRANSFERASE 56 U/L (15-37); BILIRUBIN,DIRECT 0.2 mg/dL (0.0-0.2); BILIRUBIN,TOTAL 0.4 mg/dL (0.2-1.0); TOTAL PROTEIN, SERUM 7.6 g/dL (6.4-8.2)
[2022-04-25] MEDS ORDERED: CHLO25TA13 PO (03:40)
[2022-04-25 04:06] LABS: *BILIRUBIN,URIN NEGATIVE (NEGATIVE); *BLOOD, URINE NEGATIVE (NEGATIVE); *CLARITY,URINE CLOUDY (CLEAR); *COLOR,URINE YELLOW (YELLOW); *KETONES,URINE TRACE (NEGATIVE); *UROBILINOGEN,URINE 0.2 E.U./dl (NORMAL); LEUKOCYTE ESTERASE ,URINE 1+ (NEGATIVE); NITRITE, URINE POSITIVE (NEGATIVE); PH,URINE 5.5 (5.0-8.0); UGLUCOSE NEGATIVE (NEGATIVE)
[2022-04-25 04:20] LABS: BACTERIA,URINE MANY /HPF (NONE SEEN); RBC,URINE 0-3 /HPF (0-3); SQUAMOUS EPITHELIAL CELL,UR FEW /HPF (NONE SEEN); WBC,URINE 80-100 /HPF (0-3)
[2022-04-25 04:32] LABS: *AMPHETAMINE, URINE POSITIVE (NEGATIVE); *CANNABINOID, URINE NEGATIVE (NEGATIVE); *COCCAINE, URINE NEGATIVE (NEGATIVE); *OPIATE, URINE POSITIVE (NEGATIVE); *PHENCYCLIDINE SCREEN,URINE NEGATIVE (NEGATIVE)
--- NOTE | 2022-04-25 04:37 | NUR ---
pt resting with eyes closed, easily awakens denies any pain.
[2022-04-25] MEDS ORDERED: CEFTRIAXONE 1 G in IV DEXTROSE 5% 50 ML IV ONE (05:15)
[2022-04-25] MEDS ORDERED: CIPR-262 PO (05:16)
[2022-04-25] MEDS ORDERED: CEFTRIAXONE /D5W 50ML IVPB **ER PYXIS IV ONE (05:29)
--- NOTE | 2022-04-25 06:29 | NUR ---
Patient discharged to home in stable condition. Written and verbal after care instructions given. Patient verbalizes understanding of instructions. Stressed follow up or return to ER for worsening s/s. a taxi was called for the pt, he will wait in the waiting room for it.
[2022-04-25 06:31] VITALS: BP 116/61
== END 2022-04-25 06:31 | disposition home or self-care (01) ==
LOC: ER 02:05
DX: R06.6 Hiccough (principal); N39.0 Urinary tract infection, site not specified; F15.10 Other stimulant abuse, uncomplicated; R74.01 Elevation of levels of liver transaminase levels; R94.31 Abnormal electrocardiogram [ECG] [EKG]; R79.1 Abnormal coagulation profile; Z59.00 Homelessness unspecified; J44.9 Chronic obstructive pulmonary disease, unspecified; I25.2 Old myocardial infarction; Z79.899 Other long term (current) drug therapy; Z88.6 Allergy status to analgesic agent; Z88.8 Allergy status to other drugs, medicaments and biological substances; Z91.018 Allergy to other foods; F17.210 Nicotine dependence, cigarettes, uncomplicated; R05.9 Cough, unspecified
CPT/HCPCS: 36415; 71045; 80048; 80076; 80307; 81001; 83735; 83880; 84484; 85025; 85379; 87086; 93005; 96365; 96375; 99285; J0696; J0780; J1170; A4663

== ENCOUNTER 2022-05-11 18:21 | Emergency (ER) | payer MEDICARE, OTHER ==
[~2022-05-11] VITALS: Ht 170.2 cm; Wt 74.8 kg
[~2022-05-11 18:21] MED LIST changes: +CHLO25TA13 PO; +CIPR-262 PO
--- NOTE | 2022-05-11 18:50 | NUR ---
Dr Rahman@bedside, I attempted IV line 2x, unsuccessful, is aware. 7pm charge account authorizer Adrian notified.
[2022-05-11] MEDS ORDERED: MAGNESIUM SULFATE 2 GM in IV DEXTROSE 5% 100 ML IV ONE (19:00)
[2022-05-11] MEDS ORDERED: IPRATROPIUM BROMIDE 0.5 MG/2.5 ML NEBU NEB ONE (19:00)
[2022-05-11] MEDS ORDERED: HYDROMORPHONE 1 MG/1 ML DISP.SYRIN IV ONE (19:00)
[2022-05-11] MEDS ORDERED: ALBUTEROL SULFATE 2.5 MG/3 ML NEBU NEB ONE (19:00)
[2022-05-11] MEDS ORDERED: ONDANSETRON 4 MG/2 ML VIAL IV ONE (19:00)
--- NOTE | 2022-05-11 19:01 | NUR ---
Nursing SBAR to PATRIC Booker, still for blood draw, IV line insertion & meds@this time
[2022-05-11] MEDS ORDERED: IPRATROPIUM BROMIDE 0.5 MG/2.5 ML NEBU ONE (19:12)
[2022-05-11] MEDS ORDERED: ALBUTEROL SULFATE 2.5 MG/3 ML NEBU ONE (19:12)
[2022-05-11] MEDS ORDERED: IV NS 1000 ML 1,000 ML IV ONE (19:15)
[2022-05-11 19:18] LABS: CARBON DIOXIDE 28 mmol/L (21-32); CHLORIDE 107 mmol/L (98-107); CREATININE 1.6 mg/dL (0.6-1.3); GLUCOSE 104 mg/dL (74-106); POTASSIUM 4.6 mmol/L (3.5-5.1); UREA NITROGEN, BLOOD 33 mg/dL (7-18)
[2022-05-11 19:19] LABS: HEMATOCRIT 37.9 % (36.7-47.1); MEAN CORPUSCULAR VOLUME 88.1 fL (73.0-96.2); PLATELET COUNT (AUTO) 199 K/uL (152-348)
[2022-05-11] MEDS ORDERED: HYDROMORPHONE 1 MG/1 ML DISP.SYRIN ONE (19:27)
[2022-05-11] MEDS ORDERED: MAGNESIUM SULFATE/D5W 200 ML ONE (19:27)
[2022-05-11] MEDS ORDERED: ONDANSETRON 4 MG/2 ML VIAL ONE (19:27)
[2022-05-11 19:32] LABS: ALANINE AMINOTRANSFERASE 69 U/L (16-63); ALKALINE PHOSPHATASE 94 U/L (50-136); ASPARTATE AMINOTRANSFERASE 52 U/L (15-37); BILIRUBIN,DIRECT 0.2 mg/dL (0.0-0.2); BILIRUBIN,TOTAL 0.4 mg/dL (0.2-1.0)
[2022-05-11] MEDS ORDERED: CHOL500062 PO (22:44)
[2022-05-11] MEDS ORDERED: HYDR-3972 PO (22:44)
[2022-05-11] MEDS ORDERED: ALBU18HF2 INH (22:44)
--- NOTE | 2022-05-11 22:57 | NUR ---
Patient given written and verbal discharge instructions. Patient verbalizes understanding of instructions. Patient is ambulatory with steady gait. Refuses offer of fpc placement. Patient given list of available shelters in surrounding area. VSS, no acute signs of distress, all belongings taken, IV site discontinued.
[2022-05-11 22:58] VITALS: BP 120/68
== END 2022-05-11 22:58 | disposition home or self-care (01) ==
LOC: ER 18:21
DX: J44.1 Chronic obstructive pulmonary disease with (acute) exacerbation (principal); F17.210 Nicotine dependence, cigarettes, uncomplicated; R07.89 Other chest pain; R74.01 Elevation of levels of liver transaminase levels; R94.31 Abnormal electrocardiogram [ECG] [EKG]; R79.1 Abnormal coagulation profile; J98.01 Acute bronchospasm; Z59.00 Homelessness unspecified; I25.2 Old myocardial infarction; F15.10 Other stimulant abuse, uncomplicated
CPT/HCPCS: 36415; 71045; 80048; 80076; 83735; 83880; 84484 ×2; 85025; 85379; 93005; 94644; 96365; 96375; 99285; J1170; J2405; J3475 ×2; J7040 ×2; A4663; J3590

== ENCOUNTER 2022-05-26 16:47 | Emergency (ER) | payer MEDICARE, OTHER ==
[~2022-05-26 16:47] MED LIST changes: +ALBU18HF2 INH; +CHOL500062 PO; +HYDR-3972 PO
--- NOTE | 2022-05-26 18:56 | NUR ---
PT LEFT WITHOUT BEEN TRIAGED.
== END 2022-05-26 18:57 | disposition left against medical advice (07) ==
LOC: ER 16:57
DX: Z53.21 Procedure and treatment not carried out due to patient leaving prior to being seen by health care provider (principal)

== ENCOUNTER 2022-10-12 23:35 | Inpatient (IN) | payer MEDICARE, OTHER ==
[~2022-10-12] VITALS: Ht 175.3 cm; Wt 66.2 kg
[2022-10-13 01:18] LABS: HEMATOCRIT 38.1 % (36.7-47.1); MEAN CORPUSCULAR HEMOGLOBIN 30.7 uug (23.8-33.4); MEAN CORPUSCULAR VOLUME 92.7 fL (73.0-96.2); PLATELET COUNT (AUTO) 174 K/uL (152-348)
[2022-10-13 01:34] LABS: CARBON DIOXIDE 34 mmol/L (21-32); CHLORIDE 106 mmol/L (98-107); CREATININE 1.2 mg/dL (0.6-1.3); GLUCOSE 103 mg/dL (74-106); POTASSIUM 3.5 mmol/L (3.5-5.1); UREA NITROGEN, BLOOD 41 mg/dL (7-18)
[2022-10-13 01:48] LABS: ALANINE AMINOTRANSFERASE 881 U/L (16-63); ALKALINE PHOSPHATASE 139 U/L (50-136); ASPARTATE AMINOTRANSFERASE 482 U/L (15-37); BILIRUBIN,DIRECT 0.6 mg/dL (0.0-0.2); BILIRUBIN,TOTAL 1.1 mg/dL (0.2-1.0); TOTAL PROTEIN, SERUM 5.6 g/dL (6.4-8.2)
[2022-10-13] MEDS ORDERED: MORPHINE SULFATE 4 MG/1 ML DISP.SYRIN IV ONE (02:15)
[2022-10-13] MEDS ORDERED: ALBUTEROL SULFATE 2.5 MG/3 ML NEBU NEB ONE (02:15)
[2022-10-13] MEDS ORDERED: IPRATROPIUM BROMIDE 0.5 MG/2.5 ML NEBU NEB ONE (02:15)
[2022-10-13] MEDS ORDERED: DILTIAZEM HCL 25 MG IV IV ONE (02:15)
[2022-10-13] MEDS ORDERED: MORPHINE SULFATE 4 MG/1 ML DISP.SYRIN ONE ×2 (02:21→05:43)
[2022-10-13] MEDS ORDERED: DILTIAZEM HCL 25 MG IV ONE ×2 (02:21→08:44)
[2022-10-13] MEDS ORDERED: IPRATROPIUM BROMIDE 0.5 MG/2.5 ML NEBU ONE (02:53)
[2022-10-13] MEDS ORDERED: ALBUTEROL SULFATE 2.5 MG/3 ML NEBU ONE (02:53)
--- NOTE | 2022-10-13 04:07 | NUR ---
Called EPIC to page Vincent Aguilera NP.
--- NOTE | 2022-10-13 04:12 | NUR ---
Dr. Messer on panel call with Vincent Aguilera NP.
[2022-10-13] MEDS ORDERED: ONDANSETRON 4 MG/2 ML VIAL IV PRN (05:00)
[2022-10-13] MEDS ORDERED: FUROSEMIDE 20 MG/2 ML VIAL IV SCH (05:00)
[2022-10-13] MEDS ORDERED: REMEDY ESSENTIAL ZINC PASTE 113 GM TP PRN (05:00)
[2022-10-13] MEDS ORDERED: ACETAMINOPHEN 325 MG TABLET PO PRN (05:00)
[2022-10-13] MEDS ORDERED: MAGNESIUM HYDROXIDE 30 ML LIQUID UDC PO PRN (05:00)
[2022-10-13] MEDS ORDERED: ENOXAPARIN SODIUM 40 MG/0.4 ML DISP.SYRIN SQ SCH (05:00)
[2022-10-13] MEDS ORDERED: ENOXAPARIN SODIUM 40 MG/0.4 ML DISP.SYRIN SQ ONE (05:36)
[2022-10-13] MEDS ORDERED: MORPHINE SULFATE 4 MG/1 ML DISP.SYRIN IM PRN (05:45)
[2022-10-13] MEDS: MORPHINE SULFATE 2 MG/1 ML DISP.SYRIN IV PRN ×2 (05:57→10:24)
[2022-10-13] MEDS ORDERED: FUROSEMIDE 20 MG/2 ML VIAL ONE (08:43)
[2022-10-13] MEDS ORDERED: methylPREDNISolone SOD SUCC 40 MG/ML VIAL ONE (08:44)
[2022-10-13] MEDS: FUROSEMIDE 20 MG/2 ML VIAL IV SCH ×2 (09:00→21:10)
[2022-10-13] MEDS ORDERED: DILTIAZEM HCL CD 120 MG CAP.SR.24H PO SCH (09:00)
[2022-10-13] MEDS: methylPREDNISolone SOD SUCC 40 MG/ML VIAL IV SCH ×3 (09:03→21:09)
[2022-10-13] MEDS ORDERED: PANTOPRAZOLE SODIUM 40 MG VIAL ONE (09:45)
[2022-10-13] MEDS: PANTOPRAZOLE SODIUM 40 MG VIAL IV SCH (09:46)
--- NOTE | 2022-10-13 10:24 | NUR ---
PATIENT ARRIVED ON FLOOR VIA BED. O2 NOTED 2 L VIA NC, SAT 96%. AMBULATED FROM ONE BED TO THE OTHER. C/O CHEST PAIN LEVEL 7. MORPHINE ADMIN. PAUL Jefferson RN
[2022-10-13 10:35] VITALS: BP 111/64
--- NOTE | 2022-10-13 10:35 | NUR ---
Received the patient from the off-going nurse, A/O X 4, C/O (RT) shoulder pain/discomfort with limited ROM. Patient admitted on telemetry, placed on the monitor, observed with A-Fib/RVR and O2 saturation 92%, placed on O2 @ 3LPM via N/C; O2 saturation 98%. Patient observed with #20G angio-cath to (RT) F/A, as per the off-going nurse, angio-cath is not patent. Order for midline in place, Lorne SPIVEYlapping machine operator Nurse placed followup call for the PICC nurse. Angio-cath removed, site WNL and dry protective/pressure dressing in place. #20G angio-cath inserted to (RT) medial F/A and patient medicated as per MD orders (see eMAR). ER MD informed of the patient's (RT) shoulder pain and limited ROM, stat X-Ray ordered and completed. Echo completed at the bedside as ws previously ordered. (LT) upper arm Midline inserted by the PICC RN, site WNL and 9am medication administered (see eMAR). Patient has an assigned bed, verbal report via the telephone given to Isaac SPIVEY, the assigned nurse. Patient transported safely via stretcher on the monitor technician to his assigned bed. Patient transferred safely onto his assigned bed, left stable with Isaac SPIVEY at the bedside.
--- NOTE | 2022-10-13 10:50 | NUR ---
PATIENT HR 140, REPORTED TO DR KAMARA. NEW ORDERS TO TRANSFER PATIENT TO [facility] AND START AMIODARONE DRIP. PAUL Jefferson RN
[2022-10-13 10:59] VITALS: BP 134/113
--- NOTE | 2022-10-13 11:15 | NUR ---
PATIENT WAS ASSESSED FOR PAIN , PAIN LEVEL CURRENTLY 4. HR DECREASED FROM 140 TO 125 ON TELE MONITOR. CURRENTLY EATING SNACKS. NO CONCERNS NOTED. CALL SMITH WITHIN REACH BED. PAUL Jefferson RN
--- NOTE | 2022-10-13 11:30 | NUR ---
assumed care from assigned RN- pt on afib with RVR- to be started on amiodarone drip- transferrred on [facility] status, at this time pt awake and alert and oriented x 3, chest pain relieved and on 2lnc 02 sat at 97%, explained plan of care- verbalized understanding, safety initiated, call light within reach
[2022-10-13] MEDS: AMIODARONE HCL IV 450 MG in IV DEXTROSE 5% 250 ML IV PRN ×2 (11:31→22:05)
--- NOTE | 2022-10-13 13:30 | NUR ---
amiodarone drip infusing- tele remains afib 120's, no chest pain, continue to monitor
[2022-10-13] MEDS ORDERED: METO25TA6 PO (15:35)
[2022-10-13] MEDS ORDERED: ATOR40TA PO (15:35)
[2022-10-13] MEDS ORDERED: APIX5TAB PO (15:35)
[2022-10-13] MEDS ORDERED: LISI2.5T14 PO (15:35)
[2022-10-13] MEDS ORDERED: FLUT1DIS28 IH (15:35)
[2022-10-13] MEDS ORDERED: AMIO200T5 PO (15:35)
[2022-10-13] MEDS ORDERED: FURO40TA5 PO (15:35)
[2022-10-13] MEDS: APIXABAN 5 MG TABLET PO SCH (16:50)
[2022-10-13] MEDS: ENSURE ENLIVE (VAN) 240 ML LIQUID PO SCH (16:50)
[2022-10-13] MEDS: FLUTICASONE/VILANTEROL 1 EACH BLST.W.DEV INH SCH (16:50)
--- NOTE | 2022-10-13 18:50 | NUR ---
resting in bed, no chest pain, remains on tele afib uncontrolled 114-120's, no chest pain, amiodarone drip infusing, all needs attended and met, call light within reach,
[2022-10-13 20:25] VITALS: BP 120/59
[2022-10-13] MEDS ORDERED: ATORVASTATIN 40 MG TABLET PO SCH (21:00)
[2022-10-13 22:00] VITALS: BP 126/79
[2022-10-13] MEDS: ALBUTEROL SULFATE 2.5 MG/ 0.5 ML NEBU NEB PRN (23:44)
[2022-10-13] MEDS: IPRATROPIUM BROMIDE 0.5 MG/2.5 ML NEBU NEB PRN (23:44)
[2022-10-14 00:05] VITALS: BP 134/62
[2022-10-14] MEDS: IPRATROPIUM BROMIDE 0.5 MG/2.5 ML NEBU NEB PRN (02:09)
[2022-10-14] MEDS: ALBUTEROL SULFATE 2.5 MG/ 0.5 ML NEBU NEB PRN (02:09)
[2022-10-14 04:11] VITALS: BP 132/84
[2022-10-14 06:00] VITALS: BP 136/76
[2022-10-14] MEDS: methylPREDNISolone SOD SUCC 40 MG/ML VIAL IV SCH ×2 (06:28→14:00)
--- NOTE | 2022-10-14 07:01 | NUR ---
PT VERY AGGRESSIVE AT TIMES. eATS CONTINUOUSLY. REMAINS IN AFIB WITH RATE FLUCTUATING 107-120'S CONTINUE ON AMIODORONE DRIP AT 0.5 MG /HR dRIP ENDS AT 1130AM.
[2022-10-14 08:00] VITALS: BP 138/72
[2022-10-14] MEDS: FUROSEMIDE 20 MG/2 ML VIAL IV SCH (08:47)
[2022-10-14] MEDS: PANTOPRAZOLE SODIUM 40 MG VIAL IV SCH (08:47)
[2022-10-14] MEDS: ENSURE ENLIVE (VAN) 240 ML LIQUID PO SCH ×3 (08:47→16:45)
[2022-10-14] MEDS: FLUTICASONE/VILANTEROL 1 EACH BLST.W.DEV INH SCH (08:48)
[2022-10-14] MEDS: APIXABAN 5 MG TABLET PO SCH ×2 (08:51→16:46)
[2022-10-14] MEDS ORDERED: DILTIAZEM HCL CD 120 MG CAP.SR.24H PO SCH (09:00)
[2022-10-14] MEDS ORDERED: ENOXAPARIN SODIUM 40 MG/0.4 ML DISP.SYRIN SQ SCH (09:00)
[2022-10-14] MEDS ORDERED: LISINOPRIL 5 MG TABLET PO SCH (09:00)
[2022-10-14] MEDS ORDERED: FUROSEMIDE 40 MG TABLET PO SCH (09:00)
[2022-10-14] MEDS ORDERED: AMIODARONE HCL 200 MG TABLET PO SCH ×2 (10:15→21:00)
[2022-10-14] MEDS ORDERED: AMIODARONE HCL 200 MG TABLET PO ONE (10:30)
[2022-10-14 12:00] VITALS: BP 122/63
--- NOTE | 2022-10-14 12:10 | NUR ---
Nuclear Medicine Pulmonary VQ scan requires patient to have PCR test, not antigen rapid. RN To call back Radiology department when ready. Phone call 12:10pm
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
[2022-10-14] MEDS: MORPHINE SULFATE 2 MG/1 ML DISP.SYRIN IV PRN (13:01)
[2022-10-14 13:08] LABS: HEMATOCRIT 36.9 % (36.7-47.1); MEAN CORPUSCULAR HEMOGLOBIN 30.5 uug (23.8-33.4); MEAN CORPUSCULAR VOLUME 94.1 fL (73.0-96.2); PLATELET COUNT (AUTO) 172 K/uL (152-348)
[2022-10-14 13:15] LABS: CARBON DIOXIDE 32 mmol/L (21-32); CHLORIDE 100 mmol/L (98-107); CREATININE 1.6 mg/dL (0.6-1.3); MAGNESIUM 1.6 mg/dL (1.8-2.4); PHOSPHOROUS 2.9 mg/dL (2.5-4.9); POTASSIUM 3.8 mmol/L (3.5-5.1); UREA NITROGEN, BLOOD 41 mg/dL (7-18)
[2022-10-14 13:54] LABS: THYROID STIMULATING HORMONE 0.191 mIU/mL (0.358-3.740)
[2022-10-14 14:15] LABS: GLUCOSE 307 mg/dL (74-106)
[2022-10-14 16:00] VITALS: BP 120/63
== END 2022-10-14 21:33 | disposition left against medical advice (07) | DRG 291 ==
LOC: ER 23:47 → TELE3 10-13 05:38 → TELE-TD3 10-13 11:09 → TELE3 10-14 16:00
PROVIDERS: ADMIT Internal Medicine; ATTEND Internal Medicine
PROC: 05H633Z Insertion of Infusion Device into Left Subclavian Vein, Percutaneous Approach (ICD-10-PCS; principal; 2022-10-13)
PROC: B547ZZA Ultrasonography of Left Subclavian Vein, Guidance (ICD-10-PCS; 2022-10-13)
DX: I11.0 Hypertensive heart disease with heart failure (principal); I50.23 Acute on chronic systolic (congestive) heart failure; N17.0 Acute kidney failure with tubular necrosis; J44.1 Chronic obstructive pulmonary disease with (acute) exacerbation; J90 Pleural effusion, not elsewhere classified; I48.91 Unspecified atrial fibrillation; E88.09 Other disorders of plasma-protein metabolism, not elsewhere classified; Z59.00 Homelessness unspecified; R74.01 Elevation of levels of liver transaminase levels; Z79.01 Long term (current) use of anticoagulants; Z20.822 Contact with and (suspected) exposure to COVID-19; E87.5 Hyperkalemia; F10.10 Alcohol abuse, uncomplicated; Z91.199 Patient's noncompliance with other medical treatment and regimen due to unspecified reason; Z87.11 Personal history of peptic ulcer disease; R91.1 Solitary pulmonary nodule; M75.51 Bursitis of right shoulder; R07.9 Chest pain, unspecified; F15.10 Other stimulant abuse, uncomplicated; Z87.891 Personal history of nicotine dependence; I25.10 Atherosclerotic heart disease of native coronary artery without angina pectoris; Z79.899 Other long term (current) drug therapy
CPT/HCPCS: 36415; 71045; 71250; 73030; 76705; 78579; 83735; 84100; 84443; 84484; 85025; 93005; 93307; A4663; A9540; C9113; G0378; J1650; J1940; J2270; J2920; J3490; J3590; J7040; J7050; U0003